=== PATIENT | female | born 1935 | race Caucasian/White ===

== ENCOUNTER 2016-10-09 10:18 | Observation (INO) ==
--- NOTE | 2016-10-09 10:47 | Emergency Department Note ---
Disposition Clinical Impression: Influenza A Syncope Qualifiers: Syncope type: unspecified Qualified Code(s): R55 - Syncope and collapse Pneumonia Qualifiers: Aspiration pneumonia type: unspecified Laterality: unspecified laterality Lung location: unspecified part of lung Disposition: Admitted As Inpatient Condition: Good Syncope HPI - General Chief Complaint: ED Syncope Stated Complaint: Syncope Time Seen by Provider: 10/09/16 10:31 Source: patient, EMS Limitations: no limitations Nursing Notes Reviewed: Yes Vital Signs Reviewed: Yes - History of Present Illness HPI Narrative: Patient here for evaluation of syncope. Patient had several second loss of consciousness while at home. Patient was sitting in a chair receiving her Lantus shot and she passed out. Patient felt onset of chair states that she had the back of her head. Patient complains of posterior occipital tenderness. Patient has had several episodes of passing out in the past but none of them correlated to specific etiology. Patient has not had cardiac workup in greater than 5 years. No previous cardiac history. Patient has had what she considers flulike symptoms for the last 3 days she has been treating with over-the- counter medicines. Patient describes cough and generalized fatigue. Patient also states that she is had urinary frequency without dysuria which she attributes to diabetes. - Related Data Home Medications Medication Instructions Recorded Confirmed Alendronate Sodium [Fosamax] 70 mg PO WE 10/09/16 10/09/16 Aspirin [Lo-Dose Aspirin EC] 81 mg PO DAILY 10/09/16 10/09/16 Atorvastatin [Lipitor] 40 mg PO HS 10/09/16 10/09/16 Glucosamine HCl/Chondr Pruett A Na 1 tab PO BID 10/09/16 10/09/16 [[facility] Glucosamine-Chondr Tablet] Insulin ASPART [Novolog Flexpen] 4 - 6 unit SQ TIDWM 10/09/16 10/09/16 Insulin Glargine,Hum.rec.anlog 12 unit SQ QAM 10/09/16 10/09/16 [Lantus Solostar] LORazepam [Ativan] 0.5 mg PO HS 10/09/16 10/09/16 Lisinopril [Zestril] 5 mg PO DAILY 10/09/16 10/09/16 Allergies Allergy/AdvReac Type Severity Reaction Status Date / Time No Known Allergies Allergy Verified 10/09/16 10:56 Constitutional: Denies: fever, chills Cardiovascular: Reports: syncope. Denies: chest pain, palpitations Respiratory: Reports: cough. Denies: dyspnea Gastrointestinal: Denies: abdominal pain, nausea, vomiting Genitourinary: Reports: frequency. Denies: urgency Musculoskeletal: Denies: back pain Integumentary: Denies: rash, abrasion, lesions Neurological: Reports: headache. Denies: weakness, numbness, confusion Endocrine: Denies: fatigue Past Medical History - Past Medical History Medical history: Reports: diabetes, hyperlipidemia, hypertension - Social History Smoking Status: Never smoker Smokeless Tobacco Status: No Alcohol use: Reports: none Drug use: Reports: none Physical Exam - General Limitations: no limitations General appearance: alert, in no apparent distress - Head Head exam: atraumatic, normocephalic - Eye Eye exam: Present: normal appearance, PERRL, EOMI - ENT ENT exam: normal exam, normal oropharynx - Neck Neck exam: Present: normal inspection - Chest Chest inspection: Present: normal inspection - Respiratory Respiratory exam: Present: normal lung sounds bilaterally - Cardiovascular Cardiovascular exam: Present: regular rate, normal rhythm - Abdominal Exam Abdominal exam: Present: soft, Non-Tender - Extremities Exam Extremities exam: Present: normal inspection. Absent: tenderness - Back Exam Back exam: Present: normal inspection. Absent: tenderness - Neurological Exam Neurological exam: Present: alert, oriented X3 - Psychiatric Psychiatric exam: Present: normal affect, normal mood - Skin Skin exam: Present: warm, dry, intact Course Course Narrative: Patient comes in with history of syncope that has unclear etiology. No previous workup. Recent flulike illness. Patient will receive CT scan of the head, chest x-ray, urinalysis and blood work including a troponin. Patient will likely be admitted for further observation and management. - Reevaluation(s) Reevaluation #1: Patient with syncope found to have influenza and pneumonia. Influenza pneumonia treated with Tamiflu, ceftriaxone, azithromycin. Patient will be admitted for further observation and management. - Consultations Consultation #1: Discussed with Dr. Mcelroy. Patient accepted for admission Vital Signs Temperature 97.8 F 10/09/16 10:19 Pulse Rate 64 10/09/16 10:19 Respiratory Rate 16 10/09/16 10:19 Blood Pressure 200/75 10/09/16 10:19 O2 Sat by Pulse Oximetry 96 10/09/16 10:19 Temperature 97.8 F 10/09/16 10:19 Pulse Rate 57 10/09/16 11:41 Respiratory Rate 16 10/09/16 11:41 Blood Pressure 177/68 10/09/16 11:41 O2 Sat by Pulse Oximetry 98 10/09/16 11:41 Oxygen Delivery Oxygen Delivery Room Air Syncope - Lab Data Result diagrams: 10/09/16 11:00 10/09/16 11:00 Lab Results 10/09/16 10/09/16 10/09/16 Range/Units 10:55 11:00 11:00 WBC 6.5 (4.3-11.1) K/mcL RBC 3.72 L (3.82-4.97) M/mcL Hgb 11.8 (11.5-15.4) g/dL Hct 36.4 (35.3-44.9) % MCV 97.8 (83.0-100.0) fL MCH 31.7 (28.0-33.3) pg MCHC 32.4 (31.6-35.5) g/dL RDW 13.0 (11.5-14.5) % Plt Count 133 L (140-400) K/mcL MPV 11.2 (9.4-12.4) fL Immature Gran % 0.6 (0-4) % Seg Neutrophils % 69.2 % Lymphocytes % 16.4 % Monocytes % 12.1 % Eosinophils % 1.5 % Basophils % 0.2 % Neutrophils # 4.5 (1.6-8.9) K/mcL Lymphocytes # 1.1 (0.6-4.6) K/mcL Monocytes # 0.8 (0.0-1.3) K/mcL Eosinophils # 0.1 (0.0-0.6) K/mcL Basophils # 0.0 (0.0-0.2) K/mcL PT 12.0 (9.4-12.1) Seconds INR 1.1 Sodium (136-145) mEq/L Potassium (3.5-4.5) mEq/L Chloride (98-109) mEq/L Carbon Dioxide (19-29) mEq/L BUN (7-20) mg/dL Creatinine (0.57-1.11) mg/dL Est GFR ( Amer) (> 60) Est GFR (Non-Af Amer) (> 60) BUN/Creatinine Ratio (6-26) Glucose (70-99) mg/dL Calculated Osmolality (280-300) Calcium (8.6-10.8) mg/dL Troponin I (0-0.03) ng/mL Urine Color Yellow (Yellow) Urine Clarity Clear (Clear) Urine pH 6.0 (5.0-8.0) pH Units Ur Specific [place] 1.020 (1.010-1.025) Urine Protein Trace (Neg-Trace) mg/dL Urine Glucose (UA) 250 H (Normal) mg/dL Urine Ketones Negative (Negative) mg/dL Urine Blood Negative (Negative) Urine Nitrite Negative (Negative) Urine Bilirubin Negative (Negative) Urine Urobilinogen Normal (Normal) mg/dL Ur Leukocyte Esterase Negative (Negative) Urine Microscopic RBC 0-3 (0-3) per hpf Urine Microscopic WBC 0-3 (0-3) per hpf Ur Squamous Epith Cells Many H (None-Few) per lpf Urine Bacteria None Seen (None-Few) per hpf Hyaline Casts None Seen (None-Few) per lpf 10/09/16 10/09/16 Range/Units 11:00 11:00 WBC (4.3-11.1) K/mcL RBC (3.82-4.97) M/mcL Hgb (11.5-15.4) g/dL Hct (35.3-44.9) % MCV (83.0-100.0) fL MCH (28.0-33.3) pg MCHC (31.6-35.5) g/dL RDW (11.5-14.5) % Plt Count (140-400) K/mcL MPV (9.4-12.4) fL Immature Gran % (0-4) % Seg Neutrophils % % Lymphocytes % % Monocytes % % Eosinophils % % Basophils % % Neutrophils # (1.6-8.9) K/mcL Lymphocytes # (0.6-4.6) K/mcL Monocytes # (0.0-1.3) K/mcL Eosinophils # (0.0-0.6) K/mcL Basophils # (0.0-0.2) K/mcL PT (9.4-12.1) Seconds INR Sodium 137 (136-145) mEq/L Potassium 4.5 (3.5-4.5) mEq/L Chloride 105 (98-109) mEq/L Carbon Dioxide 26 (19-29) mEq/L BUN 22 H (7-20) mg/dL Creatinine 1.19 H (0.57-1.11) mg/dL Est GFR ( Amer) 53 L (> 60) Est GFR (Non-Af Amer) 44 L (> 60) BUN/Creatinine Ratio 18 (6-26) Glucose 238 H (70-99) mg/dL Calculated Osmolality 295 (280-300) Calcium 9.6 (8.6-10.8) mg/dL Troponin I 0.01 (0-0.03) ng/mL Urine Color (Yellow) Urine Clarity (Clear) Urine pH (5.0-8.0) pH Units Ur Specific [place] (1.010-1.025) Urine Protein (Neg-Trace) mg/dL Urine Glucose (UA) (Normal) mg/dL Urine Ketones (Negative) mg/dL Urine Blood (Negative) Urine Nitrite (Negative) Urine Bilirubin (Negative) Urine Urobilinogen (Normal) mg/dL Ur Leukocyte Esterase (Negative) Urine Microscopic RBC (0-3) per hpf Urine Microscopic WBC (0-3) per hpf Ur Squamous Epith Cells (None-Few) per lpf Urine Bacteria (None-Few) per hpf Hyaline Casts (None-Few) per lpf Attestation Statement - Attestation Attestation: Patient was seen with resident physician. I reviewed the history, physical, assessment and plan, and agree with the findings. I also personally evaluated this patient and had [id number] time with this patient. 81-year-old female presents to the emergency Department chief complaint is syncopal. Patient was getting ready to take her insulin shot when she got lightheaded and dizzy. This resulted in loss of consciousness where she fell from the chair to the ground hitting the back of her head. Family member states she was only out for a few seconds did not hit very hard. Patient denies neck pain or head pain at this time. On examination ENT is unremarkable. Heart and lungs are normal. Abdomen is soft and nontender. Extremities are unremarkable. Patient stated that she thought she might have influenza that she has been feeling well for the last couple days. Influenza test was in fact positive. X-ray of the chest also revealed a pneumonia. Between the syncope the pneumonia and influenza, felt hospitalization was best course of action for further evaluation and antibiotic therapy. Hospitalist was notified for admission. Patient hemodynamically remained stable while in the ER. I agree with the resident physician assessment plan.
[2016-10-09 11:08] LABS: Basophils % 0.2 %; Eosinophils # 0.1 K/mcL (0.0-0.6); Eosinophils % 1.5 %; Hematocrit 36.4 % (35.3-44.9); Hemoglobin 11.8 g/dL (11.5-15.4); Immature Granulocytes % 0.6 % (0-4); Lymphocytes # 1.1 K/mcL (0.6-4.6); Lymphocytes % 16.4 %; Mean Corpuscular HGB Conc 32.4 g/dL (31.6-35.5); Mean Corpuscular Hemoglobin 31.7 pg (28.0-33.3); Mean Corpuscular Volume 97.8 fL (83.0-100.0); Mean Platelet Volume 11.2 fL (9.4-12.4); Monocytes # 0.8 K/mcL (0.0-1.3); Monocytes % 12.1 %; Neutrophils # 4.5 K/mcL (1.6-8.9); Platelet Count 133 K/mcL (140-400); Red Blood Count 3.72 M/mcL (3.82-4.97); Segmented Neutrophils % 69.2 %
[2016-10-09 11:11] LABS: Bilirubin,Urine Negative (Negative); Blood,Urine Negative (Negative); Clarity,Urine Clear (Clear); Color,Urine Yellow (Yellow); Glucose,Urine (UA) 250 mg/dL (Normal); Ketones,Urine Negative (Negative); Leukocyte Esterase,Urine Negative (Negative); Nitrite,Urine Negative (Negative); Protein,Urine Trace mg/dL (Neg-Trace); Urobilinogen,Urine Normal (Normal)
[2016-10-09 11:13] LABS: Bacteria,Urine None Seen per hpf (None-Few); Hyaline Casts,Urine None Seen per lpf (None-Few); RBC,Urine 0-3 per hpf (0-3); Squamous Epithelial Cell,Urine Many per lpf (None-Few); WBC,Urine 0-3 per hpf (0-3)
[2016-10-09 11:17] LABS: INR 1.1
[2016-10-09 11:26] LABS: Calcium 9.6 mg/dL (8.6-10.8); Potassium 4.5 mEq/L (3.5-4.5)
[2016-10-09] MEDS ORDERED: Azithromycin 250 MG TABLET PO ONE (11:40)
[2016-10-09] MEDS ORDERED: Ondansetron 4 MG/2 ML VIAL IVP PRN (14:19)
[2016-10-09] MEDS ORDERED: 0.9 % Sodium Chloride 1,000 ML IVC SCH (14:30)
[2016-10-09] MEDS ORDERED: Dextrose Gel 15 GM PO PRN ×2 (14:59)
[2016-10-09] MEDS ORDERED: *HR* Dextrose 50 % in Water (Syg) 50 ML SYRINGE IVP PRN (14:59)
[2016-10-09] MEDS ORDERED: D5% in Water 1,000 ML IV PRN (14:59)
[2016-10-09] MEDS ORDERED: Albuterol 2.5 MG/3 ML NEBULIZER IH PRN (15:12)
--- NOTE | 2016-10-09 15:19 | Internal Med History&Physical ---
<Imtiaz Mcelroy - Last Filed: 10/09/16 20:10> Internal Medicine - H&P: HPI History of present illness: Ms. Quezada is a 81 year old female Internal Medicine - H&P: Meds Alendronate Sodium [Fosamax] 70 mg PO WE 10/09/16 [History] Aspirin [Lo-Dose Aspirin EC] 81 mg PO DAILY 10/09/16 [History] Atorvastatin [Lipitor] 40 mg PO HS 10/09/16 [History] Glucosamine HCl/Chondr Pruett A Na [[facility] Glucosamine-Chondr Tablet] 1 tab PO BID 06/17 [History] Insulin ASPART [Novolog Flexpen] 4 - 6 unit SQ TIDWM 10/09/16 [History] Insulin Glargine,Hum.rec.anlog [Lantus Solostar] 12 unit SQ QAM 10/09/16 [ History] LORazepam [Ativan] 0.5 mg PO HS 10/09/16 [History] Lisinopril [Zestril] 5 mg PO DAILY 10/09/16 [History] Allergies No Known Allergies Allergy (Verified 10/09/16 10:56) All Systems PM: A 10-system review of systems was performed and is negative for pertinent findings except as documented above in the HPI. - Constitutional Vitals: Temp Pulse Resp BP Pulse Ox 98.4 F 59 15 169/69 96 10/09/16 14:59 10/09/16 14:59 10/09/16 14:59 10/09/16 14:59 10/09/16 14:59 Internal Med - H&P Results - Labs CBC & Chem 7: 10/09/16 11:00 10/09/16 11:00 - Attending Attestation I examined this patient and my medical decision-making was reviewed with the Advanced Practice Nurse. I agree with the documented findings, disposition and treatment plan as described except to the extent set forth below. Patient presented to the hospital after a brief episode of syncope. Workup revealed atypical pneumonia. She was positive for influenza. On exam she is in no distress, speaking in full sentences. Heart is regular S1- S2, lungs are clear Plan for pneumonia we will treat her with ceftriaxone and azithromycin and Tamiflu. <Emily Freed - Last Filed: 10/09/16 20:56> Date of Encounter: 10/09/16 Time of Encounter: 15:14 Assessment and Plan (1) Influenza A Current visit: Yes Status: Acute 1 patient has been experiencing increased feet fatigue and cough for the past 4 days, influenza swab was positive for A. ration started on Tamiflu 2 supportive care Tylenol for pain Mucinex for cough and breathing treatments as needed 3 anti-medics for nausea gentle IV hydration overnight (2) JENNIFER (acute kidney injury) Current visit: Yes Status: Acute 1 patient's creatinine is 1.19 GFR is 44. Baseline is less than 1. Suspect this is prerenal patient has been ill with poor oral intake as well as she is on lisinopril. We will hold lisinopril for now 2 we will give gentle IV fluids overnight monitor creatinine 3 avoid nephrotoxins renal dose antibiotics 4 monitor intake and output (3) HTN (hypertension) Current visit: Yes Status: Acute 1 presently is controlled she is on lisinopril she has increased creatinine we will hold lisinopril for now and resume once back to baseline Qualifiers: Hypertension type: essential hypertension Qualified Code(s): I10 - Essential (primary) hypertension (4) Syncope Current visit: Yes Status: Acute 1 patient did experience a syncopal episode today. CT of head is negative EKG with normal sinus rhythm-no past cardiac issues Suspect this is related to recent illness, has been in bed for past 4 days, most likely orthostatic. We will place on fall precautions 2 IV fluids 3 orthostatic vital signs 4 continuous cardiac monitoring 5 echo 6 cardiac troponin Qualifiers: Syncope type: unspecified Qualified Code(s): R55 - Syncope and collapse (5) DVT prophylaxis Current visit: Yes Status: Acute (6) Community acquired pneumonia due to influenza A virus Current visit: Yes Status: Acute 1 patient has been experiencing cough fatigue nausea for the past 4 days. She is positive for influenza A. Leukocytosis at this time no fever. Chest x-ray indicative of pneumonia. Continue with supportive treatment 2 we will continue with Rocephin and Zithromax 3 breathing treatments as needed 4 oxygen as needed Internal Medicine - H&P: HPI Chief complaint: syncope Admitted From: Emergency Dept Plans for Post Hospital Care: Home History of present illness: Ms. Quezada is a 81 year old female has no history of diabetes with hypertension. According to patient she has been experiencing a cough with fatigue and nausea for the past 4 days. Her cough is productive however she is unable to cough anything up and has been feeling congested. She has been using OTC medicines with little relief She denies any fevers or chills abdominal pain vomiting or diarrhea shortness of breath or chest pain. According to the patient she get up this morning was going into the kitchen to receive her Lantus. Her was preparing her shot, she became lightheaded , felt like she was going to pass out and she sat in the chair. She denies any CP headache or palpitations. Her administered her insulin and the patient passed out. He attempted to assist her to the floor and as he did the patient hit back of her head on the chair. called the EMS the patient did arouse prior to EMS arriving and she was appropriate following commands. Upon arrival to the ER CT of patient's head was negative for any intracranial abnormalities for did reveal a positive influenza A swab. Significant leukocytosis she had elevated creatinine at 1.19 BUN was 22 Chest x-ray did reveal patchy airspace disease which could represent pneumonia. The patient was given Tamiflu as well as antibiotics and has been admitted for further work up and evaluation. Presently the patient does not appear to be in any respiratory distress she denies any chest pain or shortness of breath at this time. Her lung sounds are clear throughout she does have a moist cough which causes her to gag. At present time she is hemodynamically stable I did review this case with Dr. Mcelroy who agrees with plan Past Med Surg Social Fam HX - Past Medical History Medical history: diabetes, hyperlipidemia, hypertension Psychiatric history: no psych history - Past Surgical History Surgical History: hysterectomy - Social History Smoking Status: Never smoker Smokeless Tobacco Status: No Alcohol use: none Drug use: none - Family History Mother Living Status: Hx Family Cardiac Disorders: Yes (HTN) All Systems PM: A 10-system review of systems was performed and is negative for pertinent findings except as documented above in the HPI. - Constitutional Constitutional: fatigue - Cardiovascular Cardiovascular ROS IM: no chest pain, no diaphoresis, no dyspnea, no lightheadedness, no palpitations, no syncope - Respiratory Respiratory: cough, chest congestion, excessive phlegm production - Gastrointestinal Gastrointestinal: no abdominal pain, no diarrhea, no hematemesis, no hematochezia, no melena, no nausea, no vomiting - Genitourinary Genitourinary: no change in urinary stream, no dysuria, no flank pain, no hematuria - Musculoskeletal Musculoskeletal ROS IM: no numbness, no tingling - Integumentary Integumentary IM: no rash, no unusual bruising - Neurological Neurological ROS: no confusion, no convulsions, no focal weakness, no numbness, no tingling, no tremor(s) - Constitutional Vitals: Temp Pulse Resp BP Pulse Ox 98.3 F 67 15 180/71 96 10/09/16 13:18 10/09/16 13:18 10/09/16 13:18 10/09/16 13:18 10/09/16 14:25 General appearance: Present: A&O X 3, answers questions appropriately - Head Head exam: Present: atraumatic, normocephalic - Eye Eye exam: Present: PERRL, conjuntiva pink, sclera anicteric Pupils: Present: PERRL - Neck Neck exam general surgery: Present: supple, trachea midline. Absent: lymphadenopathy - Respiratory Respiratory exam: Present: CTAB. Absent: accessory muscle use, rales, rhonchi, wheezes - Cardiovascular Cardiovascular exam: Present: RRR, +S1, +S2. Absent: diastolic murmur, gallop, rubs, systolic murmur - GI/Abdominal GI/Abdominal exam: Present: normal bowel sounds, soft, no peritoneal signs. Absent: distended, tenderness - Extremities Exam Extremities exam: Present: warm, radial pulses palpable and symetrical. Absent : calf tenderness, cyanotic, pedal edema - Neurological Exam Neurological exam: Present: CN II-XII intact, oriented X3, no focal deficits. Absent: pronater drift, facial droop, speech deficit - Skin Skin exam: Present: dry, intact Internal Med - H&P Results - Labs CBC & Chem 7: 10/09/16 11:00 10/09/16 11:00 - EKG Data EKG shows normal: sinus rhythm - Diagnostic Studies Chest x-ray Additional comments: Chest X-Ray 10/09/16 10:31 IMPRESSION: Patchy airspace disease within the left upper lobe and lingula could represent pneumonia. D/ / Alexander Bowers MD / Alexander Bowers MD Interpreting Provider: Alexander Bowers MD Head CT 10/09/16 10:32 IMPRESSION: No acute intracranial abnormality. D/ / Niels Jimenez MD / Niels Jimenez MD Interpreting Provider: Niels Jimenez MD
[2016-10-09] MEDS: Insulin LISPRO 300 UNITS/3 ML VIAL SQ SCH ×2 (16:44→21:00)
[2016-10-09] MEDS: *HR* LORazepam 0.5 MG TABLET PO SCH (20:42)
[2016-10-09] MEDS: (Glucosamine Hcl/Chondr Su A Na [Cvs Glucosamine-Chon) PO SCH (20:43)
[2016-10-09] MEDS: Insulin DETEMIR 100 UNIT/ML X5UNITS SQ SCH (20:59)
[2016-10-10] MEDS: *HR* Heparin 5,000 UNIT/ML VIAL SQ SCH ×2 (06:09→17:37)
[2016-10-10 06:47] LABS: BUN/Creatinine Ratio 18 (6-26); Blood Urea Nitrogen 17 mg/dL (7-20); Calcium 8.5 mg/dL (8.6-10.8); Carbon Dioxide 25 mEq/L (19-29); Chloride 107 mEq/L (98-109); Glucose 48 mg/dL (70-99); Osmolality,Calculated 285 (280-300); Sodium 138 mEq/L (136-145); eGFR For African Americans > 60 (> 60); eGFR For Non-African Americans 59 (> 60)
[2016-10-10 07:09] LABS: Basophils % 0.5 %; Eosinophils # 0.1 K/mcL (0.0-0.6); Eosinophils % 1.8 %; Hematocrit 30.7 % (35.3-44.9); Immature Granulocytes % 0.5 % (0-4); Lymphocytes # 1.7 K/mcL (0.6-4.6); Lymphocytes % 39.5 %; Mean Corpuscular HGB Conc 33.2 g/dL (31.6-35.5); Mean Corpuscular Hemoglobin 32.3 pg (28.0-33.3); Mean Corpuscular Volume 97.2 fL (83.0-100.0); Mean Platelet Volume 11.8 fL (9.4-12.4); Monocytes # 0.5 K/mcL (0.0-1.3); Monocytes % 11.4 %; Platelet Count 119 K/mcL (140-400); Red Blood Count 3.16 M/mcL (3.82-4.97); Segmented Neutrophils % 46.3 %
[2016-10-10 07:10] LABS: Hemoglobin 10.2 g/dL (11.5-15.4)
[2016-10-10] MEDS: Insulin LISPRO 300 UNITS/3 ML VIAL SQ SCH ×4 (07:33→22:08)
[2016-10-10] MEDS: Aspirin Enteric Coated 81 MG Tablet PO SCH (09:47)
[2016-10-10] MEDS: (Glucosamine Hcl/Chondr Su A Na [Cvs Glucosamine-Chon) PO SCH ×2 (09:48→22:09)
[2016-10-10] MEDS: Azithromycin 500 MG in D5% in Water 250 ML IVPB SCH (12:49)
--- NOTE | 2016-10-10 14:37 | Internal Med Progress Note ---
Date of Encounter: 10/10/16 Time of Encounter: 11:00 - Assessment and plan (1) JENNIFER (acute kidney injury) Current Visit: Yes Status: Ruled-out Assessment and plan: Patient's chemistry does not meet criteria for JENNIFER which is Cr >0.5 from patient 's baseline Her baseline Cr per chart hovers around 1.11 (04/25/14) and admitting Creatinine was 1.19 Cr has now improved to 0.92, patient is clinically improved d/C IVF (2) Community acquired pneumonia due to influenza A virus Current Visit: Yes Status: Acute Assessment and plan: Continue Ceftriaxone and Azithromycin. Day 2 Follow sputum culture (3) DVT prophylaxis Current Visit: Yes Status: Acute Assessment and plan: Heparin SQ (4) HTN (hypertension) Current Visit: Yes Status: Chronic Assessment and plan: Continue current meds Qualifiers: Hypertension type: essential hypertension Qualified Code(s): I10 - Essential (primary) hypertension (5) Influenza A Current Visit: Yes Status: Acute Assessment and plan: Continue Tamiflu (6) Syncope Current Visit: Yes Status: Resolved Assessment and plan: Resolved Possibly from dehydration Qualifiers: Syncope type: unspecified Qualified Code(s): R55 - Syncope and collapse - Subjective Interval history: 81 Y/O F with PMH of HTN, DM, HLD She is admitted and being managed for Influenza, Pneumonia and mild dehydration Seen at bedside, with spouse has no new complains - Constitutional Vitals: Temp Pulse Resp BP Pulse Ox 98.7 F 65 14 144/65 96 10/10/16 05:06 10/10/16 10:51 10/10/16 10:51 10/10/16 10:51 10/10/16 10:51 General appearance: Present: A&O X 3, pleasant, no acute distress, answers questions appropriately - Head Head exam: Present: atraumatic, normocephalic - Eye Eye exam: Present: PERRL, conjuntiva pink, sclera anicteric Pupils: Present: PERRL - Neck Neck exam general surgery: Present: supple, trachea midline. Absent: lymphadenopathy - Respiratory Respiratory exam: Present: CTAB. Absent: accessory muscle use, rales, rhonchi, wheezes - Cardiovascular Cardiovascular exam: Present: RRR, +S1, +S2. Absent: diastolic murmur, gallop, rubs, systolic murmur - GI/Abdominal GI/Abdominal exam: Present: normal bowel sounds, soft, no peritoneal signs. Absent: distended, tenderness - Extremities Exam Extremities exam: Present: warm, radial pulses palpable and symetrical. Absent : calf tenderness, cyanotic, pedal edema - Neurological Exam Neurological exam: Present: CN II-XII intact, oriented X3, no focal deficits. Absent: pronater drift, facial droop, speech deficit - Skin Skin exam: Present: dry, intact Internal Medicine: Result - Labs CBC & Chem 7: 10/10/16 06:01 10/10/16 06:01 Labs: Short CBC 10/10/16 Range/Units 06:01 WBC 4.4 (4.3-11.1) K/mcL Hgb 10.2 L D (11.5-15.4) g/dL Hct 30.7 L (35.3-44.9) % Plt Count 119 L (140-400) K/mcL Neutrophils # 2.0 (1.6-8.9) K/mcL BMP 10/10/16 06:01 Sodium 138 Potassium 4.0 Chloride 107 Carbon Dioxide 25 BUN 17 Creatinine 0.92 Glucose 48 L Calcium 8.5 L Cardiac Enzymes 10/09/16 10/10/16 Range/Units 21:08 06:01 Troponin I 0.01 0.02 (0-0.03) ng/mL - ABG Interpretation ABG results: PT/INR, D-dimer PT 12.0 Seconds (9.4-12.1) 10/09/16 11:00 Consult Discharge Plan - Plan Referrals: Pedro Leiva DO [Primary Care Provider] -
--- NOTE | 2016-10-10 14:45 | ECHO - Doppler Report ---
Echocardiogram Name: Gerri Quezada Date of Study: 10/10/2016 Date: 1935 Ht: 59.0 in Medical Record#: [id number] Age: 81 Wt: 104.0 lb Gender: Female BSA: 1.4 Order #: [id number] Location: [facility] Room #: [id number] Reading Physician: Jah Gloria DO, RAVEN, MAGALYS ADAME [employer]umber Kil[employer] Operator: Bee Melton RDCS Ordering Physician: Haider Gómez DO Primary Physician: Erica Leiva DO Indications: Syncope Impressions: LVEF 60-65%. Normal LV chamber size and function. Asymmetric hypertrophy of the basal septum. No LVOT obstruction. Mild left ventricular diastolic dysfunction. Normal right ventricular structure and function. Mild aortic regurgitation. No evidence of pulmonary hypertension. Left Ventricular Wall Motion: Rest Echo Findings All wall segments showed normal motion. Findings: Study Quality * Technically adequate exam. ECG Findings * Normal sinus rhythm. Left Ventricle * LVEF 60-65%. * Normal LV chamber size and function. * Asymmetric hypertrophy of the basal septum. No LVOT obstruction. * Mild left ventricular diastolic dysfunction. Right Ventricle * Normal right ventricular structure and function. Left Atrium * Mild to moderately dilated left atrium. Right Atrium * Normal right atrial size. Interatrial Septum * Interatrial septum not well evaluated. Aortic Valve * Trileaflet aortic valve. * Mildly sclerotic aortic valve leaflets. * Mild aortic regurgitation. * No aortic stenosis. Mitral Valve * Mildly thickened mitral valve leaflets. * Trace mitral regurgitation. * No mitral stenosis. Tricuspid Valve * Normal tricuspid valve structure and function. * Trace tricuspid regurgitation. * No evidence of pulmonary hypertension. Pulmonic Valve * Pulmonic valve not well visualized. * No pulmonic regurgitation. Aorta * Normally sized aortic root. Pericardium * The pericardium appears normal. IVC * Normal IVC dimensions and inspiratory collapse. Pulmonary Artery * Normal visualized portions of the main pulmonary artery. History Hypertension Diabetes Hypercholesteremia Family History of CAD 06-18-12 a Previous Echo was performed. Measurements: BP: 127/ 66 2D Normal Values RVIDd: 3.00 cm <2.7 cm IVSd: 1.30 cm 0.6 - 1.0 cm LVIDd: 4.20 cm 3.7 - 5.6 cm LVPWd: 1.20 cm 0.6 - 1.1 cm LVIDs: 2.40 cm 1.5 - 3.6 cm AO: 2.50 cm < 4.0 cm LA: 3.20 cm 2.0 - 4.0cm %FS: 42.90 cm >25 % LVOT Diam: 1.90 cm LA volume: 51 Mitral Valve Peak E:.65 m/sec Peak A:1.05 m/sec E/A Ratio:0.6 Peak E' Lat Nando:8.68 cm/s Peak E' Med Nando:7.12 cm/s E/E' Lat Ratio:7.5 E/E' Med Ratio:9.2 Aortic Valve AI pressure Half-time: 579.00 msec Tricuspid Valve TV Regurg Peak Grad: 20.00mmHg TV Regurg Peak Nando: 2.22m/sec Updated by Jah Gloria DO, FACLisa, MAGALYS ADAME on 10/10/2016 2:39:56 PM electronically signed on 10/10/2016 2:40:38 PM with status of Final Wall Motion Noguera: 1=Normal, 2=Hypokinesis, 3=Akinesis, 4=Dyskinesis, 5=Aneurysmal, 6=Hyperkinetic, X=Not Visualized (Blank)=Missing
[2016-10-10] MEDS: Insulin DETEMIR 100 UNIT/ML X5UNITS SQ SCH (22:08)
[2016-10-10] MEDS: Oseltamivir Phosphate 30 MG CAPSULE PO SCH (22:10)
[2016-10-10] MEDS: *HR* LORazepam 0.5 MG TABLET PO SCH (22:10)
[2016-10-11] MEDS: *HR* Heparin 5,000 UNIT/ML VIAL SQ SCH (05:38)
[2016-10-11 05:41] LABS: Basophils % 0.3 %; Eosinophils # 0.1 K/mcL (0.0-0.6); Eosinophils % 2.1 %; Hematocrit 30.7 % (35.3-44.9); Hemoglobin 10.2 g/dL (11.5-15.4); Immature Granulocytes % 0.3 % (0-4); Lymphocytes # 1.9 K/mcL (0.6-4.6); Lymphocytes % 51.5 %; Mean Corpuscular HGB Conc 33.2 g/dL (31.6-35.5); Mean Corpuscular Hemoglobin 32.2 pg (28.0-33.3); Mean Corpuscular Volume 96.8 fL (83.0-100.0); Mean Platelet Volume 11.5 fL (9.4-12.4); Monocytes # 0.4 K/mcL (0.0-1.3); Monocytes % 9.7 %; Platelet Count 119 K/mcL (140-400); Red Blood Count 3.17 M/mcL (3.82-4.97); Segmented Neutrophils % 36.1 %
[2016-10-11 05:55] LABS: Calcium 9.3 mg/dL (8.6-10.8); Potassium 4.5 mEq/L (3.5-4.5)
[2016-10-11 05:56] LABS: Neutrophils # 1.3 K/mcL (1.6-8.9)
[2016-10-11 06:18] LABS: Platelet Estimate Slight Decrease (Normal)
[2016-10-11] MEDS: Azithromycin 500 MG in D5% in Water 250 ML IVPB SCH (08:41)
[2016-10-11] MEDS: Aspirin Enteric Coated 81 MG Tablet PO SCH (08:41)
[2016-10-11] MEDS: (Glucosamine Hcl/Chondr Su A Na [Cvs Glucosamine-Chon) PO SCH (08:42)
[2016-10-11] MEDS: Oseltamivir Phosphate 30 MG CAPSULE PO SCH (08:47)
[2016-10-11] MEDS: Insulin LISPRO 300 UNITS/3 ML VIAL SQ SCH ×2 (08:48→12:12)
--- NOTE | 2016-10-11 09:18 | Internal Med Progress Note ---
Date of Encounter: 10/11/16 Time of Encounter: 09:15 - Assessment and plan (1) Community acquired pneumonia due to influenza A virus Current Visit: Yes Status: Acute Assessment and plan: Patient presented with productive cough x 4 days. Chest x-ray done in ED which revealed patchy airspace disease within the left upper lobe and lingula suspicious for pneumonia. Started on Rocephin/Azithromycin yesterday. Sputum culture was ordered but has not been collected. Today patient reports continued dry cough. Afebrile. WBC 3.7. Patient is 96% on RA. On exam scattered wheezing b /l. No rales, rhonchi. Plan: -Continue Rocephin/Azithromycin for total of 7 days (today is day 2) -Albuterol Neb 2.5mg Q2H PRN wheezing -Mucinex 600 mg PO BID (2) Influenza A Current Visit: Yes Status: Acute Assessment and plan: Patient presented with fatigue, productive cough, nausea, decreased oral intake x4 days. Patient tested positive for FluA. In ED was started on IVF and TamiFlu. Today patient reports she is feeling better. She has remained afebrile. WBC 3.7. Plan: -Continue Tamiflu 30mg BID x5 days (renal dosing due to elevated Cr.) -No longer appears dehydrated and is tolerating PO fluids. No IVF at this time. -Zofran 4mg Q8 PRN nausea (3) JENNIFER (acute kidney injury) Current Visit: Yes Status: Resolved Assessment and plan: Patient with 4 day history of decreased oral intake secondary to Flu/PNA symptoms. Appeared dehydrated on arrival. Cr in ED 1.19 (baseline around 1.11). Patient was given IVF. Today Cr 1.09. Will continue to monitor. (4) Diabetes Current Visit: Yes Status: Chronic Assessment and plan: Patient with history of DM. Two low readings in the 40s yesterday. Most recent was 170. Goal is <160. Continue Levemir 12 units HS, HumaLOG low dose corrective sliding scale HS, HumaLOG low dose corrective sliding scale TID after meals. Qualifiers: Diabetes mellitus type: type 2 Diabetes mellitus complication status: without complication Diabetes mellitus [facility] insulin use: with intermediate accountant use Qualified Code(s): E11.9 - Type 2 diabetes mellitus without complications ; Z79.4 - intermediate accountant (current) use of insulin (5) HLD (hyperlipidemia) Current Visit: Yes Status: Chronic Assessment and plan: Patient with history of HLD. Have restarted home Lipitor 40mg PO HS. Qualifiers: Hyperlipidemia type: unspecified Qualified Code(s): E78.5 - Hyperlipidemia , unspecified (6) HTN (hypertension) Current Visit: Yes Status: Chronic Assessment and plan: Patient with history of HTN. BP 200/75 on arrival. Currently 155/62. Have restarted home Lisinopril 10mg. Will continue to monitor. Qualifiers: Hypertension type: essential hypertension Qualified Code(s): I10 - Essential (primary) hypertension (7) Syncope Current Visit: Yes Status: Resolved Assessment and plan: Resolved. Patient reports one episode of lightheadedness and subsequent syncope at home immediately prior to arrival in the ED. Reports 4 days of decreased oral intake due to nausea. On exam in the ED patient appeared dehydrated. Was given IVF. Now tolerating PO fluids. No longer appears dehydrated. Reports no new episodes of lightheadedness/syncope. Will Continue to monitor. Qualifiers: Syncope type: unspecified Qualified Code(s): R55 - Syncope and collapse (8) DVT prophylaxis Current Visit: Yes Status: Acute Assessment and plan: Patient on SQ Heparin 5000U Q12 - Subjective Interval history: I have seen and examined the patient this morning. No overnight events. Reports she is feeling better. Continues to have a dry cough. Reports one loose/watery BM yesterday. Denies chills, sob, wheezing, cp, abdominal pain, n/v, dysuria, blood in her urine or stool. Denies any other pain/complaints at this time. - Constitutional Vitals: Temp Pulse Resp BP Pulse Ox 97.7 F 52 18 155/62 96 10/11/16 07:07 10/11/16 07:07 10/11/16 07:07 10/11/16 07:07 10/11/16 07:07 General appearance: Present: A&O X 3, pleasant, no acute distress, answers questions appropriately - Head Head exam: Present: atraumatic, normocephalic - Eye Eye exam: Present: PERRL, conjuntiva pink, sclera anicteric Pupils: Present: PERRL - ENT ENT exam: Present: mucous membranes moist, normal exam, normal external ear exam - Neck Neck exam general surgery: Present: supple, trachea midline. Absent: lymphadenopathy - Respiratory Respiratory exam: Present: wheezes (b/l scattered). Absent: accessory muscle use, prolonged expiratory phase, rales, respiratory distress, rhonchi, tachypnea - Cardiovascular Cardiovascular exam: Present: bradycardia, +S1, +S2. Absent: diastolic murmur, gallop, JVD, rubs, systolic murmur - GI/Abdominal GI/Abdominal exam: Present: normal bowel sounds, soft, no peritoneal signs. Absent: distended, tenderness - Extremities Exam Extremities exam: Present: warm, radial pulses palpable and symetrical. Absent : calf tenderness, cyanotic, pedal edema - Back Exam Back exam: Present: normal inspection. Absent: tenderness - Neurological Exam Neurological exam: Present: oriented X3, no focal deficits. Absent: pronater drift, facial droop, speech deficit - Psychiatric Psychiatric exam: Present: normal affect, normal mood - Skin Skin exam: Present: dry, normal color, warm Internal Medicine: Result - Labs CBC & Chem 7: 10/11/16 05:20 10/11/16 05:20 Labs: Short CBC 10/11/16 Range/Units 05:20 WBC 3.7 L (4.3-11.1) K/mcL Hgb 10.2 L (11.5-15.4) g/dL Hct 30.7 L (35.3-44.9) % Plt Count 119 L (140-400) K/mcL Neutrophils # 1.3 L (1.6-8.9) K/mcL BMP 10/11/16 05:20 Sodium 135 L Potassium 4.5 Chloride 104 Carbon Dioxide 26 BUN 19 Creatinine 1.09 Glucose 198 H Calcium 9.3 - ABG Interpretation ABG results: PT/INR, D-dimer PT 12.0 Seconds (9.4-12.1) 10/09/16 11:00 Consult Discharge Plan - Plan Additional Instructions: Follow up with Dr. Leiva regarding this hospital admission in the next 7 days. Complete the entire course of antibiotics as directed. Referrals: Pedro Leiva DO [Primary Care Provider] - () Prescriptions: Azithromycin [Zithromax Tri-Moiz] 500 mg PO DAILY #3 tablet Cefdinir [Omnicef] 300 mg PO DAILY #3 capsule Oseltamivir Phosphate [Tamiflu] 30 mg PO BID #6 capsule
[2016-10-11 11:11] VITALS: BP 162/75
--- NOTE | 2016-10-11 12:15 | Discharge Summary ---
<Ed Reza - Last Filed: 10/11/16 12:10> Date of Encounter: 10/11/16 Time of Encounter: 12:10 - Discharge Diagnosis (1) Community acquired pneumonia due to influenza A virus Priority: Primary Status: Acute Comments: Patient presented with productive cough x3 days prior to arrival. CXR revealed patchy airspace disease within the L upper lobe and linqula suspicious for pneumonia. Ceftriaxone and Azithromycin day 2/. Sputum culture was ordered, but not collected. Patient reported nonproductive cough. WBC 3.7, dcreased from 4.4 yesterday. Satting 96% on room air. To discharge with Omnicef and azithromycin for a total of 7 days. (2) Influenza A Priority: Primary Status: Acute Comments: Influenza A positive. Continue Tamiflu 30mg bid day 2, renal dosing due to decreased gfr (3) JENNIFER (acute kidney injury) Priority: Secondary Status: Resolved Comments: Resolved (4) Diabetes Priority: Secondary Status: Chronic Comments: Patient with history of diabetes. Two hypoglycemic readings in the 40s yesterday. Glucose at 170 this morning. Discharge patient on home meds for chronic disease management. Qualifiers: Diabetes mellitus type: type 2 Diabetes mellitus complication status: without complication Diabetes mellitus intermediate designer insulin use: with intermediate designer use Qualified Code(s): E11.9 - Type 2 diabetes mellitus without complications ; Z79.4 - termite inspector (current) use of insulin (5) HLD (hyperlipidemia) Priority: Secondary Status: Chronic Comments: Continue with home meds for chronic disease management. Qualifiers: Hyperlipidemia type: unspecified Qualified Code(s): E78.5 - Hyperlipidemia , unspecified (6) HTN (hypertension) Priority: Secondary Status: Chronic Comments: Bp 155/62, continue home meds for chronic disease management. Qualifiers: Hypertension type: essential hypertension Qualified Code(s): I10 - Essential (primary) hypertension (7) Syncope Priority: Secondary Status: Resolved Comments: Resolved. Patient reports one episode of lightheadedness and subsequent syncope at home immediately prior to arrival in the ED. Reports 4 days of decreased oral intake due to nausea. On exam in the ED patient appeared dehydrated. Was given IVF. Now tolerating PO fluids. No longer appears dehydrated. Reports no new episodes of lightheadedness/syncope. Will Continue to monitor. Qualifiers: Syncope type: unspecified Qualified Code(s): R55 - Syncope and collapse - Discharge Medications Prescriptions: Azithromycin [Zithromax Tri-Moiz] 500 mg PO DAILY #3 tablet Cefdinir [Omnicef] 300 mg PO DAILY #3 capsule Oseltamivir Phosphate [Tamiflu] 30 mg PO BID #6 capsule Home Medications: Alendronate Sodium [Fosamax] 70 mg PO WE 10/09/16 [History] Aspirin [Lo-Dose Aspirin EC] 81 mg PO DAILY 10/09/16 [History] Atorvastatin [Lipitor] 40 mg PO HS 10/09/16 [History] Glucosamine HCl/Chondr Pruett A Na [[facility] Glucosamine-Chondr Tablet] 1 tab PO BID 06/17 [History] Insulin ASPART [Novolog Flexpen] 4 - 6 unit SQ TIDWM 10/09/16 [History] Insulin Glargine,Hum.rec.anlog [Lantus Solostar] 12 unit SQ QAM 10/09/16 [ History] LORazepam [Ativan] 0.5 mg PO HS 10/09/16 [History] Lisinopril [Zestril] 5 mg PO DAILY 10/09/16 [History] Azithromycin [Zithromax Tri-Moiz] 500 mg PO DAILY #3 tablet 10/11/16 [Rx] Cefdinir [Omnicef] 300 mg PO DAILY #3 capsule 10/11/16 [Rx] Oseltamivir Phosphate [Tamiflu] 30 mg PO BID #6 capsule 10/11/16 [Rx] Allergies/Adverse Reactions: Allergies No Known Allergies Allergy (Verified 10/09/16 10:56) Procedures/tests Complete & Pending: Procedures Performed prior 72 hours Category Date Time Status EV echocardiogram Routine Y 10/10/16 10:00 Completed Date of admission: 10/09/16 12:21 Primary care physician: Pedro Leiva Consults: 10/09/16 20:54 Consult to Physical Therapy [CONS] Routine Comment: Evaluate, develop and implement POC Discharging clinician: Vinayak Reza) Anticipated date of discharge: 10/11/16 - Patient Status Disposition: Home, Self-Care Condition: Good Functional capacity at discharge: independent ambulation Overall status at discharge: patient is progressing back to baseline - Discharge Instructions Instructions: Azithromycin (By mouth), Oseltamivir (By mouth), Cefdinir (By mouth), Syncope (DC), Influenza (DC) Follow Up With: Pedro Leiva, [Primary Care Provider] - (Appt requested, they will call you with appt date & time.) Additional Instructions: Follow up with Dr. Leiva regarding this hospital admission in the next 7 days. Complete the entire course of antibiotics as directed. - Diet and Activity Activity: resume usual activities as tolerated Diet: advance to your usual diet, diabetic diet, low salt diet Interval History: Patient is feeling better, continues to have nonproductive dry cough. Reports one loose/watery bowel movement yesterday. Denies chills, shortness of breath, wheezing, chest pain, abdominal pain, nausea, vomiting, dysuria, blood in stool or urine. No other complaints. Hospital course: Ms. Quezada is a 81 year old female with history of diabetes, hyperlipidemia, and hypertension who presented with complaint of cough, fatigue, nausea, and chest congestion for 4 days rior to admission. Patient also reports some lightheadedness when she was getting her morning insulin dosing. CT head was negative. Influenza swab was positive for Influenza A. CXR revealed patchy airspace disease. Echo revealed LVEF 60-65% and mild aortic regurgitation. Patient was started on Ceftriaxone, Azithromycin, and Oseltamavir. Patient was also determined to have an elevated Cr of 1.19, which resolved the following day. Patient continued to have decrease in cough and improvement of symptoms. However, patient did develop some hypoglycemic readings in the 40s. Patient was held to continue monitoring sugar levels and continue administering IV antibiotics. Patient continues to have dry nonproductive cough, satting well at 96% on room air. Patient to be discharged home to follow up with PCP regarding hospital stay in the next 7 days. Continue to take complete course of antibiotics. - Time Spent with Patient Total time spent providing and/or coordinating discharge services: Less than 30 minutes - Constitutional Vitals: Temp Pulse Resp BP Pulse Ox 97.5 F L 50 18 162/75 96 10/11/16 11:07 10/11/16 11:07 10/11/16 11:07 10/11/16 11:07 10/11/16 11:07 General appearance: Present: cooperative, A&O X 3, pleasant, no acute distress, answers questions appropriately - Head Head exam: Present: atraumatic, normal inspection, normocephalic - Eye Eye exam: Present: EOMI, normal appearance, PERRL - ENT ENT exam: Present: mucous membranes moist, normal exam, normal external ear exam , normal oropharynx - Neck Neck exam general surgery: Present: full ROM, normal inspection, supple, trachea midline. Absent: lymphadenopathy, tenderness - Respiratory Respiratory exam: Present: wheezes (bilateral). Absent: accessory muscle use, chest wall tenderness, rales, rhonchi - Cardiovascular Cardiovascular exam: Present: RRR, +S1, +S2. Absent: JVD, systolic murmur - GI/Abdominal GI/Abdominal exam: Present: normal bowel sounds, soft. Absent: guarding, tenderness - Extremities Exam Extremities exam: Present: full ROM, normal capillary refill, normal inspection , warm, radial pulses palpable and symetrical. Absent: calf tenderness, pedal edema, tenderness - Back Exam Back exam: Present: full ROM, normal inspection. Absent: tenderness - Neurological Exam Neurological exam: Present: alert, CN II-XII intact, oriented X3, no focal deficits, strengths equal and symetr throughout. Absent: facial droop, speech deficit - Psychiatric Psychiatric exam: Present: normal affect, normal mood - Skin Skin exam: Present: dry, intact, normal color, warm. Absent: diaphoretic, rash <Vinayak Millan - Last Filed: 10/11/16 15:43> - Discharge Diagnosis (1) JENNIFER (acute kidney injury) Status: Resolved (2) Community acquired pneumonia due to influenza A virus Status: Acute (3) DVT prophylaxis Status: Acute (4) HTN (hypertension) Status: Chronic Qualifiers: Hypertension type: essential hypertension Qualified Code(s): I10 - Essential (primary) hypertension (5) Influenza A Status: Acute (6) Syncope Status: Resolved Qualifiers: Syncope type: unspecified Qualified Code(s): R55 - Syncope and collapse Procedures/tests Complete & Pending: Procedures Performed prior 72 hours Category Date Time Status EV echocardiogram Routine Y 10/10/16 10:00 Completed Date of admission: 10/09/16 12:21 Primary care physician: Pedro Leiva Consults: 10/09/16 20:54 Consult to Physical Therapy [CONS] Routine Comment: Evaluate, develop and implement POC Hospital course: Ms. Quezada is a 81 year old female - Time Spent with Patient Total time spent providing and/or coordinating discharge services: - Constitutional Vitals: Temp Pulse Resp BP Pulse Ox 97.5 F L 50 18 162/75 96 10/11/16 11:07 10/11/16 11:07 10/11/16 11:07 10/11/16 11:07 10/11/16 11:07 - Attending Attestation I examined this patient and my medical decision-making was reviewed with the HEEL BUFFER/PA/Advanced Practice Nurse/Resident Physician. I agree with the documented findings, disposition and treatment plan as described except to the extent set forth below. 81 Y/O F admitted for management of Influenza and Infleunza pneumonia, dehydration due to poor oral intake She is also a diabetic and hypertensive patient She had an episode of hypoglycemia in-patient, resolved with po intake She is clinically stable to go home on renallly doses tamiflu to complete 10 doses, ceftriaxone and azithromycin to complete 7 doses Patient with ow creatinine clearance ,she possibly has CKD Follow up with PCP rest of details as in resident's documentation
--- NOTE | 2016-10-11 15:20 | Electrocardiograph Report ---
[address] [address] Test Date: 2016-10-09 Pat Name: Gerri Quezada Department: 105 Room: [facility] Gender: F Multimedia Services Manager: : 1935 Requested By: Perico Green Order Number: [id number] Reading MD: Varun Miles Measurements Intervals [place] Rate: 60 P: -1 [place]: 153 QRS: 41 QRSD: 80 T: 59 QT: 419 QTc: 420 Interpretive Statements SINUS RHYTHM Electronically Signed On 10-11-2016 15:18:43 EDT by Varun Miles
== END 2016-10-11 14:20 | disposition home or self-care (01) ==
LOC: EMEROO 10:18 → 2NENU 10:18 → SUATTDRO 14:19
PROVIDERS: ADMIT Internal Medicine; ATTEND Internal Medicine

== ENCOUNTER 2018-02-01 10:18 | Observation (INO) ==
--- NOTE | 2018-02-01 10:22 | Emergency Department Note ---
Disposition Clinical Impression: Syncope, Neck pain, Bradycardia, Diabetes Disposition: Admitted As Inpatient Condition: Good General Adult HPI - General Chief complaint: ED Syncope Stated complaint: bradycardia, syncope Time Seen by Provider: 02/01/18 10:19 Nursing Notes Reviewed: Yes Vital Signs Reviewed: Yes - Related Data Home Medications Medication Instructions Recorded Confirmed Aspirin [Lo-Dose Aspirin EC] 81 mg PO DAILY 10/09/16 02/01/18 Atorvastatin [Lipitor] 40 mg PO HS 10/09/16 02/01/18 Insulin ASPART [Novolog Flexpen] 4 - 6 unit SQ TIDWM 10/09/16 02/01/18 LORazepam [Ativan] 0.5 mg PO HS 10/09/16 02/01/18 Lisinopril [Zestril] 5 mg PO DAILY 10/09/16 02/01/18 Insulin Glargine,Hum.rec.anlog 12 units SQ QAM 02/01/18 02/01/18 [Basaglar Kwikpen U-100] Memantine HCl 10 mg PO BID 02/01/18 02/01/18 Allergies Allergy/AdvReac Type Severity Reaction Status Date / Time No Known Allergies Allergy Verified 02/01/18 11:57 Past Medical History - Past Medical History Medical history: Reports: diabetes, hyperlipidemia, hypertension Surgical history: Reports: hysterectomy Psychiatric history: Reports: no psych history - Social History Smoking Status: Never smoker Smokeless Tobacco Status: No Alcohol use: Reports: none Drug use: Reports: none Course Vital Signs Temperature 97.4 F L 02/01/18 10:19 Pulse Rate 48 02/01/18 10:19 Respiratory Rate 16 02/01/18 10:19 Blood Pressure 143/74 02/01/18 10:19 O2 Sat by Pulse Oximetry 98 02/01/18 10:19 Temperature 97.4 F L 02/01/18 10:19 Pulse Rate 50 02/01/18 10:56 Respiratory Rate 16 02/01/18 13:04 Blood Pressure 182/98 02/01/18 13:04 O2 Sat by Pulse Oximetry 100 02/01/18 10:56 Oxygen Delivery Oxygen Delivery Room Air Medical Decision Making - MDM Narrative Medical decision making narrative: Chest X-Ray 02/01/18 10:19 IMPRESSION: No acute cardiopulmonary disease. D/ / Neal Cooper MD / Neal Cooper MD Interpreting Provider: Neal Cooper MD Head CT 02/01/18 10:20 IMPRESSION: 1. No acute intracranial hemorrhage or global mass effect. 2. Stable atrophy and extensive chronic microvascular ischemic changes. D/ / Giuseppe Rowan MD / Giuseppe Rowan MD Interpreting Provider: Giuseppe Rowan MD 1200 hrs.: With the possible of hypoglycemia in the syncopal episodes in the other history at like to bring her into the hospital for evaluation. She is in agreement with this plan. Think sending her home would not be ideal because she is cared for by her who is not in the best physical condition at this time either. They are in agreement with this admission plan. We will speak with the hospitalist. Impression is syncope with possible hypoglycemia - Lab Data Result diagrams: 02/01/18 10:30 02/01/18 10:30 Lab Results 02/01/18 02/01/18 02/01/18 Range/Units 10:25 10:30 10:30 WBC 6.6 (4.3-11.1) K/mcL RBC 3.72 L (3.82-4.97) M/mcL Hgb 12.2 (11.5-15.4) g/dL Hct 37.0 (35.3-44.9) % MCV 99.5 (83.0-100.0) fL MCH 32.8 (28.0-33.3) pg MCHC 33.0 (31.6-35.5) g/dL RDW 13.2 (11.5-14.5) % Plt Count 164 (140-400) K/mcL MPV 11.4 (9.4-12.4) fL Immature Gran % 0.8 (0-4) % Seg Neutrophils % 62.1 % Lymphocytes % 24.9 % Monocytes % 8.2 % Eosinophils % 3.5 % Basophils % 0.5 % Neutrophils # 4.1 (1.6-8.9) K/mcL Lymphocytes # 1.7 (0.6-4.6) K/mcL Monocytes # 0.5 (0.0-1.3) K/mcL Eosinophils # 0.2 (0.0-0.6) K/mcL Basophils # 0.0 (0.0-0.2) K/mcL Sodium 142 (136-145) mEq/L Potassium 3.8 (3.5-5.1) mEq/L Chloride 107 (98-107) mEq/L Carbon Dioxide 29 (23-29) mEq/L BUN 21 (8-23) mg/dL Creatinine 1.16 (0.60-1.20) mg/dL Est GFR ( Amer) 54 L (> 60) Est GFR (Non-Af Amer) 45 L (> 60) BUN/Creatinine Ratio 18 (6-26) Glucose 78 (70-105) mg/dL POC Glucose 68 L (70-99) mg/dL Calculated Osmolality 296 (280-300) Calcium 10.2 (8.6-10.3) mg/dL Troponin I < 0.03 (< 0.04) ng/mL Urine Color (Yellow) Urine Clarity (Clear) Urine pH (5.0-8.0) pH Units Ur Specific [place] (1.010-1.025) Urine Protein (Neg-Trace) mg/dL Urine Glucose (UA) (Normal) mg/dL Urine Ketones (Negative) mg/dL Urine Blood (Negative) Urine Nitrite (Negative) Urine Bilirubin (Negative) Urine Urobilinogen (Normal) mg/dL Ur Leukocyte Esterase (Negative) 02/01/18 02/01/18 Range/Units 11:19 12:02 WBC (4.3-11.1) K/mcL RBC (3.82-4.97) M/mcL Hgb (11.5-15.4) g/dL Hct (35.3-44.9) % MCV (83.0-100.0) fL MCH (28.0-33.3) pg MCHC (31.6-35.5) g/dL RDW (11.5-14.5) % Plt Count (140-400) K/mcL MPV (9.4-12.4) fL Immature Gran % (0-4) % Seg Neutrophils % % Lymphocytes % % Monocytes % % Eosinophils % % Basophils % % Neutrophils # (1.6-8.9) K/mcL Lymphocytes # (0.6-4.6) K/mcL Monocytes # (0.0-1.3) K/mcL Eosinophils # (0.0-0.6) K/mcL Basophils # (0.0-0.2) K/mcL Sodium (136-145) mEq/L Potassium (3.5-5.1) mEq/L Chloride (98-107) mEq/L Carbon Dioxide (23-29) mEq/L BUN (8-23) mg/dL Creatinine (0.60-1.20) mg/dL Est GFR ( Amer) (> 60) Est GFR (Non-Af Amer) (> 60) BUN/Creatinine Ratio (6-26) Glucose (70-105) mg/dL POC Glucose 85 (70-99) mg/dL Calculated Osmolality (280-300) Calcium (8.6-10.3) mg/dL Troponin I (< 0.04) ng/mL Urine Color Yellow (Yellow) Urine Clarity Clear (Clear) Urine pH 7.5 (5.0-8.0) pH Units Ur Specific [place] 1.014 (1.010-1.025) Urine Protein Negative (Neg-Trace) mg/dL Urine Glucose (UA) Normal (Normal) mg/dL Urine Ketones Negative (Negative) mg/dL Urine Blood Negative (Negative) Urine Nitrite Negative (Negative) Urine Bilirubin Negative (Negative) Urine Urobilinogen Normal (Normal) mg/dL Ur Leukocyte Esterase Negative (Negative) Attestation Statement - Attestation Attestation: This documentation is done with the assistance of Dragon dictation. Despite efforts made to ensure accuracy, there may be inaccuracies in hearing aid assistant or spelling and typographical errors. I examined this patient and my medical decision-making was reviewed with the Resident Physician. I agree with the documented findings, disposition and treatment plan as described except to the extent set forth below. Patient presents by EMS and was seen by Dr. Arcos and myself, I agree with his evaluation and management plan, supervise care the patient stay. Patient presents today she was standing up was dizzy making breakfast sat down and had a syncopal episode while she was sitting. No trauma. Her witnessed this. When medics got there sugar was normal she was diaphoretic T 90 chest pain no neuro symptoms. She has had an episode of this in the past about a year ago but that was when she had the flu and she does any fevers or flu symptoms now. Endo workup on her and reassess. She may need admission. She is in agreement with plan.
--- NOTE | 2018-02-01 10:23 | Emergency Department Note ---
Disposition Clinical Impression: Neck pain, Bradycardia Syncope Qualifiers: Syncope type: unspecified Qualified Code(s): R55 - Syncope and collapse Diabetes Qualifiers: Diabetes mellitus type: other specified (including KASSIE) Diabetes mellitus terminal operations manager insulin use: unspecified longterm insulin use status Proliferative retinopathy type: unspecified Laterality: unspecified laterality Disposition: Admitted As Inpatient Condition: Good Referrals: Mauro Hall DO [Emergency Provider] - Forms: ED Satisfaction Letter Time of Disposition: 12:09 Syncope HPI - General Chief Complaint: ED Syncope Stated Complaint: bradycardia, syncope Time Seen by Provider: 02/01/18 10:19 Source: patient, EMS Mode of arrival: EMS Limitations: no limitations Nursing Notes Reviewed: Yes Vital Signs Reviewed: Yes - History of Present Illness HPI Narrative: Patient presents to the ED via EMS after a syncopal episode. Patient states that she was in the kitchen making scrambled eggs and began to feel very dizzy. She sat down in the chair and had a syncopal episode. called EMS and upon arrival patient was awake but appeared tired. They noted she was diaphoretic and bradycardic (40s). Looking back in patient's chart she has been bradycardic into the 40s before and is about her baseline. Patient reports she is feeling a little better now but not 100% back to baseline. Denied any chest pain, shortness of breath, abdominal pain, nausea/ vomiting/diarrhea. She did report some R sided neck pain this AM that she put a washcloth on which seemed to help and was before this episode. No rash or fever. She does have a h/o DM and BS was 97 for EMS. - Related Data Home Medications Medication Instructions Recorded Confirmed Aspirin [Lo-Dose Aspirin EC] 81 mg PO DAILY 10/09/16 02/01/18 Atorvastatin [Lipitor] 40 mg PO HS 10/09/16 02/01/18 Insulin ASPART [Novolog Flexpen] 4 - 6 unit SQ TIDWM 10/09/16 02/01/18 LORazepam [Ativan] 0.5 mg PO HS 10/09/16 02/01/18 Lisinopril [Zestril] 5 mg PO DAILY 10/09/16 02/01/18 Insulin Glargine,Hum.rec.anlog 12 units SQ QAM 02/01/18 02/01/18 [Basaglar Kwikpen U-100] Memantine HCl 10 mg PO BID 02/01/18 02/01/18 Allergies Allergy/AdvReac Type Severity Reaction Status Date / Time No Known Allergies Allergy Verified 02/01/18 11:57 Review of Systems: As reviewed in the HPI. All other systems reviewed are negative or normal. Past Medical History - Past Medical History Attestation: Yes The following information was validated with the patient. Source: patient, old records reviewed Medical history: Reports: diabetes, hyperlipidemia, hypertension Surgical history: Reports: hysterectomy Psychiatric history: Reports: no psych history - Social History Smoking Status: Never smoker Smokeless Tobacco Status: No Alcohol use: Reports: none Drug use: Reports: none Physical Exam - General Limitations: no limitations General appearance: alert, in no apparent distress - Head Head exam: atraumatic, normocephalic, normal inspection - Eye Eye exam: Present: normal appearance, PERRL, EOMI - ENT ENT exam: normal exam, normal oropharynx, mucous membranes moist - Neck Neck exam: Present: normal inspection, full ROM, trachea midline - Chest Chest inspection: Present: normal inspection, symmetric chest wall rise - Respiratory Respiratory exam: Present: normal lung sounds bilaterally - Cardiovascular Cardiovascular exam: Present: normal rhythm, bradycardia, normal heart sounds - Abdominal Exam Abdominal exam: Present: soft, Non-Tender. Absent: tenderness, distention, guarding, rebound, rigidity - Extremities Exam Extremities exam: Present: normal inspection, full ROM, normal capillary refill. Absent: tenderness, pedal edema - Neurological Exam Neurological exam: Present: alert, oriented X3, CN II-XII intact - Expanded Neurological Exam Patient oriented to: Present: person, place, time Speech: Present: fluid speech Motor strength - LUE: 5/5 Motor strength - RUE: 5/5 Motor strength - LLE: 5/5 Motor strength - RLE: 5/5 Upper motor neuron exam: krystian neglect: Absent bilaterally Sensory exam upper extremity: light touch: Normal Sensory exam lower extremity: light touch: Normal Coma Scale Eye Opening: Spontaneous Coma Scale Motor Response: Obeys Commands Coma Scale Verbal Response: Oriented Coma Scale Total: 15 - Psychiatric Psychiatric exam: Present: normal affect, normal mood - Skin Skin exam: Present: warm, dry, intact, normal color Course Course Narrative: 82-year-old female presenting with syncopal episode. Was having some right- sided neck pain. Did not have any bruit. Head CT showed extensive chronic microvascular changes but no acute changes. We discussed with the patient and the patient's has seen Dr. Grier and has required carotid endarterectomies. She certainly could have right-sided occlusion. We will admit her to the hospitalist service for MRI of the head, carotid ultrasounds, and an echocardiogram. Her BS is also back up after OJ and PB. She still feels about the same so I don't think hypoglycemia would be a cause of her symptoms. Vital Signs Temperature 97.4 F L 02/01/18 10:19 Pulse Rate 48 02/01/18 10:19 Respiratory Rate 16 02/01/18 10:19 Blood Pressure 143/74 02/01/18 10:19 O2 Sat by Pulse Oximetry 98 02/01/18 10:19 Temperature 97.4 F L 02/01/18 10:19 Pulse Rate 50 02/01/18 10:56 Respiratory Rate 18 02/01/18 10:56 Blood Pressure 178/68 02/01/18 10:56 O2 Sat by Pulse Oximetry 100 02/01/18 10:56 Oxygen Delivery Oxygen Delivery Room Air Syncope - Medical Records Medical records reviewed: Yes I reviewed the patient's medical records. - Lab Data Lab results reviewed: Yes I reviewed the patient's lab results. Result diagrams: 02/01/18 10:30 02/01/18 10:30 Lab Results 02/01/18 02/01/18 02/01/18 Range/Units 10:25 10:30 10:30 WBC 6.6 (4.3-11.1) K/mcL RBC 3.72 L (3.82-4.97) M/mcL Hgb 12.2 (11.5-15.4) g/dL Hct 37.0 (35.3-44.9) % MCV 99.5 (83.0-100.0) fL MCH 32.8 (28.0-33.3) pg MCHC 33.0 (31.6-35.5) g/dL RDW 13.2 (11.5-14.5) % Plt Count 164 (140-400) K/mcL MPV 11.4 (9.4-12.4) fL Immature Gran % 0.8 (0-4) % Seg Neutrophils % 62.1 % Lymphocytes % 24.9 % Monocytes % 8.2 % Eosinophils % 3.5 % Basophils % 0.5 % Neutrophils # 4.1 (1.6-8.9) K/mcL Lymphocytes # 1.7 (0.6-4.6) K/mcL Monocytes # 0.5 (0.0-1.3) K/mcL Eosinophils # 0.2 (0.0-0.6) K/mcL Basophils # 0.0 (0.0-0.2) K/mcL Sodium 142 (136-145) mEq/L Potassium 3.8 (3.5-5.1) mEq/L Chloride 107 (98-107) mEq/L Carbon Dioxide 29 (23-29) mEq/L BUN 21 (8-23) mg/dL Creatinine 1.16 (0.60-1.20) mg/dL Est GFR ( Amer) 54 L (> 60) Est GFR (Non-Af Amer) 45 L (> 60) BUN/Creatinine Ratio 18 (6-26) Glucose 78 (70-105) mg/dL POC Glucose 68 L (70-99) mg/dL Calculated Osmolality 296 (280-300) Calcium 10.2 (8.6-10.3) mg/dL Troponin I < 0.03 (< 0.04) ng/mL 02/01/18 Range/Units 11:19 WBC (4.3-11.1) K/mcL RBC (3.82-4.97) M/mcL Hgb (11.5-15.4) g/dL Hct (35.3-44.9) % MCV (83.0-100.0) fL MCH (28.0-33.3) pg MCHC (31.6-35.5) g/dL RDW (11.5-14.5) % Plt Count (140-400) K/mcL MPV (9.4-12.4) fL Immature Gran % (0-4) % Seg Neutrophils % % Lymphocytes % % Monocytes % % Eosinophils % % Basophils % % Neutrophils # (1.6-8.9) K/mcL Lymphocytes # (0.6-4.6) K/mcL Monocytes # (0.0-1.3) K/mcL Eosinophils # (0.0-0.6) K/mcL Basophils # (0.0-0.2) K/mcL Sodium (136-145) mEq/L Potassium (3.5-5.1) mEq/L Chloride (98-107) mEq/L Carbon Dioxide (23-29) mEq/L BUN (8-23) mg/dL Creatinine (0.60-1.20) mg/dL Est GFR ( Amer) (> 60) Est GFR (Non-Af Amer) (> 60) BUN/Creatinine Ratio (6-26) Glucose (70-105) mg/dL POC Glucose 85 (70-99) mg/dL Calculated Osmolality (280-300) Calcium (8.6-10.3) mg/dL Troponin I (< 0.04) ng/mL - Radiology Data Radiology results reviewed: Yes I reviewed the patient's radiology results. - EKG Data EKG attestation: Yes I reviewed and interpreted this EKG. EKG results narrative: Sinus bradycardia, rate 49, ID interval 186, QRS 86, QTC 458, normal axis, no ischemic changes S.B.A.R. - S.B.A.R. Situation: Demographics, MOA Background: Presenting Complaint, Relevant PMH, Meds, & Allergies Assessment: Vital Signs, Course and respsone to treatment, Exam Concerns, Patient/Family Expectation, Pertinant Lab Results, Outstanding Labs Recommendation: Barrier(s) to disposition, Recommendation based on pending studies, treatments, or consults S.B.A.R. Report Given to: Dr. Rodriguez [id number] Repor Time: 12:08
[2018-02-01 10:48] LABS: Basophils % 0.5 %; Eosinophils # 0.2 K/mcL (0.0-0.6); Eosinophils % 3.5 %; Hemoglobin 12.2 g/dL (11.5-15.4); Immature Granulocytes % 0.8 % (0-4); Lymphocytes # 1.7 K/mcL (0.6-4.6); Lymphocytes % 24.9 %; Mean Corpuscular Hemoglobin 32.8 pg (28.0-33.3); Mean Corpuscular Volume 99.5 fL (83.0-100.0); Mean Platelet Volume 11.4 fL (9.4-12.4); Monocytes # 0.5 K/mcL (0.0-1.3); Monocytes % 8.2 %; Neutrophils # 4.1 K/mcL (1.6-8.9); Platelet Count 164 K/mcL (140-400); Red Blood Count 3.72 M/mcL (3.82-4.97); Red Cell Distribution Width 13.2 % (11.5-14.5); Segmented Neutrophils % 62.1 %
[2018-02-01 11:08] LABS: BUN/Creatinine Ratio 18 (6-26); Blood Urea Nitrogen 21 mg/dL (8-23); Calcium 10.2 mg/dL (8.6-10.3); Carbon Dioxide 29 mEq/L (23-29); Chloride 107 mEq/L (98-107); Glucose 78 mg/dL (70-105); Osmolality,Calculated 296 (280-300); Potassium 3.8 mEq/L (3.5-5.1); Sodium 142 mEq/L (136-145); eGFR For African Americans 54 (> 60); eGFR For Non-African Americans 45 (> 60)
[2018-02-01 11:09] LABS: Troponin I < 0.03 ng/mL (< 0.04)
[2018-02-01 12:11] LABS: Bilirubin,Urine Negative (Negative); Blood,Urine Negative (Negative); Clarity,Urine Clear (Clear); Color,Urine Yellow (Yellow); Glucose,Urine (UA) Normal (Normal); Ketones,Urine Negative (Negative); Leukocyte Esterase,Urine Negative (Negative); Nitrite,Urine Negative (Negative); PH,Urine 7.5 pH Units (5.0-8.0); Protein,Urine Negative (Neg-Trace); Specific Gravity,Urine 1.014 (1.010-1.025); Urobilinogen,Urine Normal (Normal)
[2018-02-01] MEDS ORDERED: Naloxone 0.4 MG/ML INJ IVP PRN (13:15)
[2018-02-01] MEDS ORDERED: Acetaminophen 325 MG TABLET PO PRN (13:15)
[2018-02-01] MEDS ORDERED: D5% in Water 1,000 ML IVC PRN (13:22)
[2018-02-01] MEDS ORDERED: Dextrose Gel 15 GM/37.5 ML TUBE PO PRN ×2 (13:22)
[2018-02-01] MEDS ORDERED: *HR* Dextrose 50 % in Water (Syg) 50 ML SYRINGE IVP PRN (13:22)
--- NOTE | 2018-02-01 13:41 | Internal Med History&Physical ---
<AnyaBraulio Brewer - Last Filed: 02/01/18 16:02> Date of Encounter: 02/01/18 Time of Encounter: 12:30 Internal Medicine - H&P: HPI Chief complaint: Syncope/Collapse Admitted From: Emergency Dept Plans for Post Hospital Care: Home History of present illness: Mrs. Quezada is a 83 year old female w/PMH of diabetes controlled w/insulin, HLD , and HTN presents from the ED w/CC of syncope and collapse. Pt. states she was preparing breakfast when she became dizzy, sat down, and passed out. reports pt. was diaphoretic. Pt. reports headache and right-sided neck pain prior to the episode. Pts. HR in 40s when EMS arrived. Patient and her state that she has been having sx for the past 2-3 months. Pt. reports she was started on Memantine approximately 2-3 months ago for dementia. Pt. denies recent illness, fever, chills, nausea, vomiting, changes in vision, unusual bleeding, abdominal pain, cough, chest congestion, diarrhea, constipation. Past Med Surg Social Fam HX - Past Medical History Source: patient, old records reviewed, obtained from family Medical history: diabetes, hyperlipidemia, hypertension Psychiatric history: no psych history - Past Surgical History Surgical History: hysterectomy - Social History Smoking Status: Never smoker Smokeless Tobacco Status: No Alcohol use: none Drug use: none Current living situation: Home, With Family Activity Level: Independent ambulation Recent Out of Country Travel Within the Last 8 Weeks: No Exposure or Possible Exposure to Illness During Travel: No - Family History Mother Race: Family Member Ethnicity: Non- Living Status: Age at : 80 Cause of : CT Hx Family Cardiac Disorders: Yes (CT, CAD, HTN) Father Race: Family Member Ethnicity: Non- Living Status: Age at : 48 Cause of : PNA Brother Race: Family Member Ethnicity: Non- Living Status: Age at : 72 Cause of : Pancreatic cancer Hx Family Cancer: Yes (Pancreatic, Prostate) Sister Race: Family Member Ethnicity: Non- Living Status: Age at : 88 Cause of : CT Hx Family Cardiac Disorders: Yes (CT, CAD) Internal Medicine - H&P: Meds Aspirin [Lo-Dose Aspirin EC] 81 mg PO DAILY 10/09/16 [History] Atorvastatin [Lipitor] 40 mg PO HS 10/09/16 [History] Insulin ASPART [Novolog Flexpen] 4 - 6 unit SQ TIDWM 10/09/16 [History] LORazepam [Ativan] 0.5 mg PO HS 10/09/16 [History] Lisinopril [Zestril] 5 mg PO DAILY 10/09/16 [History] Insulin Glargine,Hum.rec.anlog [Basaglar Kwikpen U-100] 12 units SQ QAM [History] Memantine HCl 10 mg PO BID 02/01/18 [History] 3 Allergy/AdvReac Type Severity Reaction Status Date / Time No Known Allergies Allergy Verified 02/01/18 11:57 All Systems PM: A 10-system review of systems was performed and is negative for pertinent findings except as documented above in the HPI. - Constitutional Constitutional: weakness (Bilateral LEs), no chills, no fever(s), no night sweats - EENT Eyes: no change in vision, no discharge, no pain, no photophobia Ears: no ear discharge, no ear pain, no tinnitus Nose, mouth and throat: no dysphagia, no nasal discharge, no neck pain, no sore throat - Breasts Breasts: as per HPI - Cardiovascular Cardiovascular ROS IM: as per HPI, irregular heart rhythm (Bradycardia), lightheadedness, syncope, no chest pain, no diaphoresis, no dyspnea, no palpitations - Respiratory Respiratory: no cough, no dyspnea, no wheezing, no excessive phlegm production - Gastrointestinal Gastrointestinal: no abdominal pain, no diarrhea, no hematemesis, no hematochezia, no melena, no nausea, no vomiting - Genitourinary Genitourinary: no change in urinary stream, no dysuria, no flank pain, no hematuria Menstruation: as per HPI, post hysterectomy - Musculoskeletal Musculoskeletal ROS IM: no numbness, no tingling - Integumentary Integumentary IM: no rash, no unusual bruising - Neurological Neurological ROS: as per HPI, dizziness, weakness, no confusion, no convulsions , no focal weakness, no numbness, no tingling, no tremor(s) - Psychiatric Psychiatric: as per HPI - Endocrine Endocrine IM: as per HPI - Hematologic/Lymphatic Hematologic/Lymphatic: no easy bruising - Allergic/Immunologic Allergic/Immunologic: as per HPI - Constitutional Vitals: Temp Pulse Resp BP Pulse Ox 97.4 F L 50 16 182/98 100 02/01/18 10:19 02/01/18 10:56 02/01/18 13:04 02/01/18 13:04 02/01/18 10:56 General appearance: Present: cooperative, A&O X 3, pleasant, no acute distress, underweight, answers questions appropriately - Head Head exam: Present: atraumatic, normocephalic - Eye Eye exam: Present: PERRL, conjuntiva pink, sclera anicteric Pupils: Present: PERRL - ENT ENT exam: Present: normal exam - Neck Neck exam general surgery: Present: supple, trachea midline. Absent: lymphadenopathy - Respiratory Respiratory exam: Present: CTAB. Absent: accessory muscle use, rales, rhonchi, wheezes - Cardiovascular Cardiovascular exam: Present: bradycardia - GI/Abdominal GI/Abdominal exam: Present: normal bowel sounds, soft, no peritoneal signs. Absent: distended, tenderness - Rectal Rectal exam: Present: deferred - Additional comments: exam deferred. - Extremities Exam Extremities exam: Present: warm, radial pulses palpable and symmetrical. Absent : calf tenderness, cyanotic, pedal edema - Back Exam Back exam: Present: normal inspection - Neurological Exam Neurological exam: Present: CN II-XII intact, oriented X3, no focal deficits. Absent: pronater drift, facial droop, speech deficit - Psychiatric Psychiatric exam: Present: normal affect, normal mood - Skin Skin exam: Present: dry, intact Internal Med - H&P Results - Labs CBC & Chem 7: 02/01/18 10:30 02/01/18 10:30 - EKG Data EKG shows normal: sinus rhythm Rate: bradycardia - EKG Data Prior EKG available for review: yes EKG comments: 02/01/18 13:46 EKG dated 10/09/16 showed sinus rhythm. EKG dated 02/01/18 shows sinus bradycardia. - Diagnostic Studies Chest x-ray Additional comments: Impressions Chest X-Ray 02/01/18 10:19 IMPRESSION: No acute cardiopulmonary disease. D/ / Neal Cooper MD / Neal Cooper MD Interpreting Provider: Neal Cooper MD CT scan - head Additional comments: Impressions Head CT 02/01/18 10:20 IMPRESSION: 1. No acute intracranial hemorrhage or global mass effect. 2. Stable atrophy and extensive chronic microvascular ischemic changes. D/ / 02/01/2018 11:43:44 Giuseppe Rowan MD / janes Interpreting Provider: Giuseppe Rowan MD - Assessment and plan (1) Syncope Current Visit: Yes Status: Acute Assessment and plan: Acute syncope. Pt. and report previous sx over the past 2-3 months. Pt. reports dizziness, headache, and right-sided neck pain prior to episode today. Bradycardic w/diaphoresis. Last Echocardiogram in 2017 showed LVEF of 60-65%, normal LV chamber size and function, asymmetric hypertrophy of the basal septum (see note LVOT obstruction), mild left ventricular diastolic dysfunction, normal right ventricular structure and function, mild aortic regurgitation, and no evidence of pulmonary hypertension. Pt. started on Memantine 2-3 months ago when sx began. Echocardiogram ordered. Bilateral carotid Dopplers. CT of the head shows no acute intracranial hemorrhage or global mass effect. Stable atrophy and extensive chronic microvascular ischemic changes. MRI of the head/ brain ordered. Consider Cardiology and Neurology consults based on abnormal test results. Falls/safety precautions. Up with assist. PT/OT consults. Hold Memantine. Pt. discussed w/Dr. Meyer who agrees w/plan of care. Pt. is moderate risk for further morbidity d/t current sx, recurrent sx of dizziness and syncope, hx, and risk factors. Observation. Qualifiers: Syncope type: unspecified Qualified Code(s): R55 - Syncope and collapse (2) Bradycardia Current Visit: Yes Status: Acute Assessment and plan: Acute bradycardia. Pt. reports previous episodes of bradycardia w/dizziness over past 2-3 months. Echocardiogram in 2017 showed LVEF of 60-65%, normal LV chamber size and function, asymmetric hypertrophy of the basal septum (see note LVOT obstruction), mild left ventricular diastolic dysfunction, normal right ventricular structure and function, mild aortic regurgitation, and no evidence of pulmonary hypertension. Echocardiogram ordered. Consider adding Cardiology consult based on Echocardiogram and Carotid Doppler results. (3) Weakness of both legs Current Visit: Yes Status: Acute Assessment and plan: Acute weakness of bilateral LEs. Falls/safety precautions d/t weakness and dizziness. Up with assist. PT/OT consults ordered to assess pt. for possible rehabilitation needs. (4) HTN (hypertension) Current Visit: Yes Status: Chronic Assessment and plan: Hx of chronic HTN. Monitor pt. and VS. Continue pts. lisinopril. Qualifiers: Hypertension type: essential hypertension Qualified Code(s): I10 - Essential (primary) hypertension (5) HLD (hyperlipidemia) Current Visit: Yes Status: Chronic Assessment and plan: Hx of chronic HLD. Lipid panel in a.m. labs. Continue pts. Lipitor. Qualifiers: Hyperlipidemia type: pure hypercholesterolemia Qualified Code(s): E78.00 - Pure hypercholesterolemia, unspecified; E78.0 - Pure hypercholesterolemia (6) Diabetes Current Visit: Yes Status: Chronic Assessment and plan: Hx of chronic diabetes controlled w/insulin. Continue pts. a.m. insulin and add low-dose correction insulin sliding scale w/hypoglycemic protocol. BG checks ACHS. A1c in a.m. labs. 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 Monitor pt. for signs of bleeding. (8) Dementia Current Visit: Yes Status: Chronic Assessment and plan: Hx of chronic dementia. Pt. reports being placed on Memantine 2-3 months ago. Pt. and state that this is approximately when sx began. also states pt. has not been herself since starting the medication. Informed pt. and that Memantine can cause syncope and bradycardia and should discuss this w/their PCP. Will hold Memantine. Qualifiers: Dementia type: unspecified type Qualified Code(s): F03.90 - Unspecified dementia without behavioral disturbance - Time Spent With Patient Total time spent is greater than 50% in coordination of care (as documented) at patient's floor/unit and/or counseling patient: Greater than 35 minutes <Maddy Rodriguez - Last Filed: 02/01/18 20:40> Date of Encounter: 02/01/18 Internal Medicine - H&P: HPI History of present illness: Ms. Quezada is a 83 year old female All Systems PM: A 10-system review of systems was performed and is negative for pertinent findings except as documented above in the HPI. - Constitutional Vitals: Temp Pulse Resp BP Pulse Ox 98.2 F 61 16 184/63 97 02/01/18 18:55 02/01/18 18:55 02/01/18 18:55 02/01/18 18:55 02/01/18 18:55 Internal Med - H&P Results - Labs CBC & Chem 7: 02/01/18 10:30 02/01/18 10:30 Labs: Cardiac Enzymes 02/01/18 Range/Units 16:37 Troponin I < 0.03 (< 0.04) ng/mL - Attending Attestation Seen and assessed. Follow up work up for syncope. 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, unspecified eye (3) Syncope Current Visit: Yes Status: Acute Qualifiers: Syncope type: unspecified Qualified Code(s): R55 - Syncope and collapse (4) Bradycardia Current Visit: Yes Status: Acute (5) HTN (hypertension) Current Visit: Yes Status: Chronic Qualifiers: Hypertension type: essential hypertension Qualified Code(s): I10 - Essential (primary) hypertension (6) HLD (hyperlipidemia) Current Visit: Yes Status: Chronic Qualifiers: Hyperlipidemia type: pure hypercholesterolemia Qualified Code(s): E78.00 - Pure hypercholesterolemia, unspecified; E78.0 - Pure hypercholesterolemia (7) Weakness of both legs Current Visit: Yes Status: Acute (8) Dementia Current Visit: Yes Status: Chronic Qualifiers: Dementia type: unspecified type Qualified Code(s): F03.90 - Unspecified dementia without behavioral disturbance - Time Spent With Patient Total time spent is greater than 50% in coordination of care (as documented) at patient's floor/unit and/or counseling patient:
[2018-02-01] MEDS: *HR* Heparin 5,000 UNIT/ML VIAL SQ SCH ×2 (14:03→22:08)
[2018-02-01] MEDS: 0.9 % Sodium Chloride 1,000 ML IVC SCH (14:05)
[2018-02-01] MEDS: Insulin LISPRO 300 UNITS/3 ML VIAL SQ SCH ×2 (16:51→22:09)
[2018-02-01] MEDS: *HR* LORazepam 0.5 MG TABLET PO SCH (22:08)
[2018-02-02 04:13] LABS: Basophils % 0.3 %; Eosinophils # 0.2 K/mcL (0.0-0.6); Eosinophils % 2.1 %; Hematocrit 29.4 % (35.3-44.9); Hemoglobin 9.8 g/dL (11.5-15.4); Immature Granulocytes % 0.4 % (0-4); Lymphocytes # 2.1 K/mcL (0.6-4.6); Lymphocytes % 26.9 %; Mean Corpuscular HGB Conc 33.3 g/dL (31.6-35.5); Mean Corpuscular Hemoglobin 32.2 pg (28.0-33.3); Mean Corpuscular Volume 96.7 fL (83.0-100.0); Mean Platelet Volume 12.1 fL (9.4-12.4); Monocytes # 0.7 K/mcL (0.0-1.3); Monocytes % 9.4 %; Neutrophils # 4.7 K/mcL (1.6-8.9); Platelet Count 138 K/mcL (140-400); Red Blood Count 3.04 M/mcL (3.82-4.97); Red Cell Distribution Width 13.2 % (11.5-14.5); Segmented Neutrophils % 60.9 %
[2018-02-02 04:31] LABS: Alanine Aminotransferase 23 Units/L (7-52); Albumin 3.5 g/dL (3.5-5.7); Albumin/Globulin Ratio 1.6 (1.1-2.2); Alkaline Phosphatase 95 Units/L (34-104); Aspartate Amino Transferase 31 Units/L (13-39); BUN/Creatinine Ratio 19 (6-26); Bilirubin,Total 0.5 mg/dL (0.3-1.0); Blood Urea Nitrogen 19 mg/dL (8-23); Calcium 9.5 mg/dL (8.6-10.3); Carbon Dioxide 27 mEq/L (23-29); Chloride 109 mEq/L (98-107); Chol/HDL Ratio 2.5 (0-4.9); Cholesterol 144 mg/dL (< 200); Globulin 2.2 g/dL (2.4-3.5); Glucose 72 mg/dL (70-105); HDL Cholesterol 58 mg/dL (40-59); LDL Cholesterol,Calculated 75 mg/dL (0-99); Osmolality,Calculated 291 (280-300); Potassium 3.9 mEq/L (3.5-5.1); Sodium 140 mEq/L (136-145); Total Protein 5.7 g/dL (6.4-8.9); Triglycerides 56 mg/dL (< 150); eGFR For African Americans > 60 (> 60); eGFR For Non-African Americans 52 (> 60)
[2018-02-02] MEDS: *HR* Heparin 5,000 UNIT/ML VIAL SQ SCH ×3 (05:38→20:37)
[2018-02-02] MEDS: 0.9 % Sodium Chloride 1,000 ML IVC SCH (05:39)
[2018-02-02 09:40] LABS: Estimated Average Glucose 171 mg/dl; Hemoglobin A1C 7.6 %
[2018-02-02] MEDS: Insulin LISPRO 300 UNITS/3 ML VIAL SQ SCH ×4 (10:11→20:37)
[2018-02-02] MEDS ORDERED: hydrALAZINE 25 MG TABLET PO PRN (10:15)
[2018-02-02] MEDS: Aspirin Enteric Coated 81 MG Tablet PO SCH (10:24)
[2018-02-02] MEDS: Insulin DETEMIR 100 UNIT/ML X5UNITS SQ SCH (10:24)
--- NOTE | 2018-02-02 17:20 | Internal Med Progress Note ---
Date of Encounter: 02/02/18 Time of Encounter: 13:00 - Assessment and plan (1) Syncope Current Visit: Yes Status: Acute Assessment and plan: Suspect secondary to orthostatic hypotension as patient reports of feeling dizzy when she stands up and had a syncopal episode earlier this morning. Will continue to monitor on telemetry and complete cardiovascular workup with echocardiogram and carotid Dopplers which are pending. With the statics are also pending. Qualifiers: Syncope type: vasovagal syncope Qualified Code(s): R55 - Syncope and collapse (2) Bradycardia Current Visit: Yes Status: Acute Assessment and plan: Patient no longer with bradycardia but will continue to monitor on telemetry (3) Dementia Current Visit: Yes Status: Chronic Assessment and plan: Patient was recently started on Memantine 2-3 months ago after which her symptoms began her . Will hold Memantine. Qualifiers: Dementia type: unspecified type Dementia behavioral disturbance: without behavioral disturbance Qualified Code(s): F03.90 - Unspecified dementia without behavioral disturbance (4) Diabetes Current Visit: Yes Status: Chronic Assessment and plan: Hx of chronic diabetes controlled w/insulin. 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 lisinopril. Qualifiers: Hypertension type: essential hypertension Qualified Code(s): I10 - Essential (primary) hypertension (6) HLD (hyperlipidemia) Current Visit: Yes Status: Chronic Assessment and plan: Continue pts. Lipitor. Qualifiers: Hyperlipidemia type: pure hypercholesterolemia Qualified Code(s): E78.00 - Pure hypercholesterolemia, unspecified; E78.0 - Pure hypercholesterolemia (7) DVT prophylaxis Current Visit: Yes Status: Acute Assessment and plan: Heparin subcutaneous - Time Spent With Patient Total time spent is greater than 50% in coordination of care (as documented) at patient's floor/unit and/or counseling patient: - Subjective Interval history: Patient reports of feeling dizzy when she stands up and had a syncopal episode earlier this morning Suspect secondary to orthostatic hypotension due to dehydration - Constitutional Vitals: Temp Pulse Resp BP Pulse Ox 97.7 F 75 18 160/65 97 02/02/18 15:48 02/02/18 15:48 02/02/18 15:48 02/02/18 15:48 02/02/18 15:48 General appearance: Present: cooperative, A&O X 3, pleasant, no acute distress, underweight, answers questions appropriately - Respiratory Respiratory exam: Present: CTAB. Absent: accessory muscle use, rales, rhonchi, wheezes - Cardiovascular Cardiovascular exam: Present: RRR, +S1, +S2. Absent: diastolic murmur, gallop, rubs, systolic murmur Internal Medicine: Result - Labs CBC & Chem 7: 02/02/18 03:16 02/02/18 03:16 Labs: Short CBC 02/02/18 Range/Units 03:16 WBC 7.8 (4.3-11.1) K/mcL Hgb 9.8 L D (11.5-15.4) g/dL Hct 29.4 L (35.3-44.9) % Plt Count 138 L (140-400) K/mcL Neutrophils # 4.7 (1.6-8.9) K/mcL BMP 02/02/18 03:16 Sodium 140 Potassium 3.9 Chloride 109 H Carbon Dioxide 27 BUN 19 Creatinine 1.01 Glucose 72 Calcium 9.5 Cardiac Enzymes 02/01/18 Range/Units 22:12 Troponin I < 0.03 (< 0.04) ng/mL Liver Function 02/02/18 Range/Units 03:16 Total Bilirubin 0.5 (0.3-1.0) mg/dL AST 31 (13-39) Units/L ALT 23 (7-52) Units/L Alkaline Phosphatase 95 (34-104) Units/L Albumin 3.5 (3.5-5.7) g/dL Consult Discharge Plan - Plan Referrals: Erika Delatorre, FOOD AND BEVERAGE ANALYST [Primary Care Provider] -
[2018-02-02] MEDS: *HR* LORazepam 0.5 MG TABLET PO SCH (20:37)
[2018-02-03] MEDS: *HR* Heparin 5,000 UNIT/ML VIAL SQ SCH ×3 (05:26→21:14)
[2018-02-03 05:41] LABS: Basophils % 0.3 %; Eosinophils # 0.2 K/mcL (0.0-0.6); Eosinophils % 3.1 %; Hematocrit 29.3 % (35.3-44.9); Hemoglobin 9.9 g/dL (11.5-15.4); Immature Granulocytes % 0.6 % (0-4); Lymphocytes # 1.9 K/mcL (0.6-4.6); Lymphocytes % 29.2 %; Mean Corpuscular HGB Conc 33.8 g/dL (31.6-35.5); Mean Corpuscular Hemoglobin 32.9 pg (28.0-33.3); Mean Corpuscular Volume 97.3 fL (83.0-100.0); Monocytes # 0.7 K/mcL (0.0-1.3); Monocytes % 10.5 %; Neutrophils # 3.6 K/mcL (1.6-8.9); Platelet Count 134 K/mcL (140-400); Red Blood Count 3.01 M/mcL (3.82-4.97); Red Cell Distribution Width 13.4 % (11.5-14.5); Segmented Neutrophils % 56.3 %
[2018-02-03 05:58] LABS: Alanine Aminotransferase 24 Units/L (7-52); Albumin 3.4 g/dL (3.5-5.7); Albumin/Globulin Ratio 1.6 (1.1-2.2); Alkaline Phosphatase 104 Units/L (34-104); Aspartate Amino Transferase 32 Units/L (13-39); BUN/Creatinine Ratio 18 (6-26); Bilirubin,Total 0.6 mg/dL (0.3-1.0); Blood Urea Nitrogen 18 mg/dL (8-23); Calcium 9.5 mg/dL (8.6-10.3); Carbon Dioxide 25 mEq/L (23-29); Chloride 111 mEq/L (98-107); Globulin 2.1 g/dL (2.4-3.5); Glucose 122 mg/dL (70-105); Osmolality,Calculated 293 (280-300); Sodium 140 mEq/L (136-145); Total Protein 5.5 g/dL (6.4-8.9); eGFR For African Americans > 60 (> 60); eGFR For Non-African Americans 52 (> 60)
[2018-02-03] MEDS: Insulin LISPRO 300 UNITS/3 ML VIAL SQ SCH ×4 (09:16→21:15)
[2018-02-03] MEDS: Aspirin Enteric Coated 81 MG Tablet PO SCH (09:18)
[2018-02-03] MEDS: Insulin DETEMIR 100 UNIT/ML X5UNITS SQ SCH (09:19)
--- NOTE | 2018-02-03 09:50 | Electrocardiograph Report ---
[address] [place] [address] Test Date: 2018-02-01 Pat Name: Gerri Quezada Department: 104 Room: 3B Gender: F Credit Specialist: : 1935 Requested By: [id number] Order Number: [id number] Reading MD: Guy Capps Measurements Intervals [place] Rate: 49 P: 18 W[place]: 186 QRS: 42 QRSD: 86 T: 57 QT: 487 QTc: 458 Interpretive Statements SINUS BRADYCARDIA Electronically Signed On 02-03-2018 9:48:52 EDT by Guy Capps
--- NOTE | 2018-02-03 10:04 | Electrocardiograph Report ---
[address] [place] [address] Test Date: 2018-02-02 Pat Name: Gerri Quezada Department: 113 Room: 3B Gender: F Fundraising Specialist: ADRIANO : 1935 Requested By: Maddy Rodriguez Order Number: [id number] Reading MD: Guy Capps Measurements Intervals [place] Rate: 66 P: 236 [place]: 160 QRS: -64 QRSD: 80 T: -71 QT: 376 QTc: 390 Interpretive Statements ECTOPIC ATRIAL RHYTHM LEFT ANTERIOR FASCICULAR BLOCK Electronically Signed On 02-03-2018 10:02:53 EDT by Guy Capps
[2018-02-03] MEDS: amLODIPine 5 MG TABLET PO SCH (13:05)
--- NOTE | 2018-02-03 18:34 | Internal Med Progress Note ---
Date of Encounter: 02/03/18 Time of Encounter: 11:00 - Assessment and plan (1) HTN (hypertension) Current Visit: Yes Status: Chronic Assessment and plan: Patient with uncontrolled hypertension on lisinopril 5 mg daily. Amlodipine 10 mg added this morning and will monitor overnight Qualifiers: Hypertension type: essential hypertension Qualified Code(s): I10 - Essential (primary) hypertension (2) Syncope Current Visit: Yes Status: Acute Assessment and plan: Suspect secondary to orthostatic hypotension as patient reports of feeling dizzy when she stands up and had a syncopal episode earlier this morning. Echocardiogram showed LVEF of 60-65% with mild left ventricular diastolic dysfunction but no significant Valvular dysfunction Carotid Dopplers with 40-59 stenosis bilaterally Orthostatics negative Will continue to hold patient's [place] Qualifiers: Syncope type: vasovagal syncope Qualified Code(s): R55 - Syncope and collapse (3) Bradycardia Current Visit: Yes Status: Acute Assessment and plan: Patient no longer with bradycardia but will continue to monitor on telemetry (4) Dementia Current Visit: Yes Status: Chronic Assessment and plan: Patient was recently started on Memantine 2-3 months ago after which her symptoms began her . Will hold Memantine. Qualifiers: Dementia type: unspecified type Dementia behavioral disturbance: without behavioral disturbance Qualified Code(s): F03.90 - Unspecified dementia without behavioral disturbance (5) Diabetes Current Visit: Yes Status: Chronic Assessment and plan: Hx of chronic diabetes controlled w/insulin. 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 Lipitor. Qualifiers: Hyperlipidemia type: pure hypercholesterolemia Qualified Code(s): E78.00 - Pure hypercholesterolemia, unspecified; E78.0 - Pure hypercholesterolemia (7) DVT prophylaxis Current Visit: Yes Status: Acute Assessment and plan: Heparin subcutaneous - Time Spent With Patient Total time spent is greater than 50% in coordination of care (as documented) at patient's floor/unit and/or counseling patient: - Subjective Interval history: Patient has been asymptomatic during hospital stay her blood pressures have been elevated She was started on calcium channel zeus this morning and will monitor overnight - Constitutional Vitals: Temp Pulse Resp BP Pulse Ox 98.0 F 52 13 164/58 98 02/03/18 15:53 02/03/18 15:53 02/03/18 15:53 02/03/18 15:53 02/03/18 15:53 General appearance: Present: cooperative, A&O X 3, pleasant, no acute distress, underweight, answers questions appropriately - Respiratory Respiratory exam: Present: CTAB. Absent: accessory muscle use, rales, rhonchi, wheezes - Cardiovascular Cardiovascular exam: Present: RRR, +S1, +S2. Absent: diastolic murmur, gallop, rubs, systolic murmur Internal Medicine: Result - Labs CBC & Chem 7: 02/03/18 05:23 02/03/18 05:23 Labs: Short CBC 02/03/18 Range/Units 05:23 WBC 6.5 (4.3-11.1) K/mcL Hgb 9.9 L (11.5-15.4) g/dL Hct 29.3 L (35.3-44.9) % Plt Count 134 L (140-400) K/mcL Neutrophils # 3.6 (1.6-8.9) K/mcL BMP 02/03/18 05:23 Sodium 140 Potassium 4.0 Chloride 111 H Carbon Dioxide 25 BUN 18 Creatinine 1.02 Glucose 122 H Calcium 9.5 Liver Function 02/03/18 Range/Units 05:23 Total Bilirubin 0.6 (0.3-1.0) mg/dL AST 32 (13-39) Units/L ALT 24 (7-52) Units/L Alkaline Phosphatase 104 (34-104) Units/L Albumin 3.4 L (3.5-5.7) g/dL Consult Discharge Plan - Plan Referrals: Erika Delatorre CNP [Primary Care Provider] -
[2018-02-03] MEDS: *HR* LORazepam 0.5 MG TABLET PO SCH (21:15)
[2018-02-04 03:53] LABS: Basophils % 0.3 %; Eosinophils # 0.3 K/mcL (0.0-0.6); Eosinophils % 3.9 %; Hematocrit 31.1 % (35.3-44.9); Hemoglobin 10.4 g/dL (11.5-15.4); Immature Granulocytes % 0.5 % (0-4); Lymphocytes # 2.7 K/mcL (0.6-4.6); Lymphocytes % 36.8 %; Mean Corpuscular HGB Conc 33.4 g/dL (31.6-35.5); Mean Corpuscular Hemoglobin 32.5 pg (28.0-33.3); Mean Corpuscular Volume 97.2 fL (83.0-100.0); Mean Platelet Volume 11.9 fL (9.4-12.4); Monocytes # 0.8 K/mcL (0.0-1.3); Monocytes % 10.5 %; Neutrophils # 3.6 K/mcL (1.6-8.9); Platelet Count 148 K/mcL (140-400); Red Cell Distribution Width 13.3 % (11.5-14.5)
[2018-02-04 04:11] LABS: Albumin 3.6 g/dL (3.5-5.7); Albumin/Globulin Ratio 1.5 (1.1-2.2); Bilirubin,Total 0.6 mg/dL (0.3-1.0); Calcium 9.8 mg/dL (8.6-10.3); Globulin 2.4 g/dL (2.4-3.5); Potassium 3.9 mEq/L (3.5-5.1)
[2018-02-04] MEDS: *HR* Heparin 5,000 UNIT/ML VIAL SQ SCH ×2 (05:18→13:48)
[2018-02-04] MEDS: amLODIPine 5 MG TABLET PO SCH (07:50)
[2018-02-04] MEDS: Aspirin Enteric Coated 81 MG Tablet PO SCH (07:50)
[2018-02-04] MEDS: Insulin DETEMIR 100 UNIT/ML X5UNITS SQ SCH (07:51)
[2018-02-04] MEDS: Insulin LISPRO 300 UNITS/3 ML VIAL SQ SCH ×2 (08:21→12:03)
[2018-02-04 11:53] VITALS: BP 133/60
--- NOTE | 2018-02-04 14:36 | Discharge Summary ---
- NOTES TO OUTPATIENT PROVIDER Notes to Outpatient Provider: Patient to follow-up with primary care provider for hypertension and dementia management. Patient's Namenda was discontinued due to potential side effects of dizziness/syncopal episodes and calcium channel zeus was started due to uncontrolled hypertension. Date of Encounter: 02/04/18 Time of Encounter: 11:00 - Discharge Diagnosis (1) HTN (hypertension) Priority: Primary Status: Chronic Qualifiers: Hypertension type: essential hypertension Qualified Code(s): I10 - Essential (primary) hypertension (2) Syncope Priority: Primary Status: Acute Qualifiers: Syncope type: vasovagal syncope Qualified Code(s): R55 - Syncope and collapse (3) Bradycardia Priority: Secondary Status: Acute (4) Dementia Priority: Primary Status: Chronic Qualifiers: Dementia type: unspecified type Dementia behavioral disturbance: without behavioral disturbance Qualified Code(s): F03.90 - Unspecified dementia without behavioral disturbance (5) Diabetes Priority: Secondary Status: Chronic Qualifiers: Diabetes mellitus type: other specified (including KASSIE) Diabetes mellitus terminal gauger supervisor insulin use: unspecified terminal gauger supervisor insulin use status Proliferative retinopathy type: unspecified Laterality: unspecified laterality Qualified Code(s): 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 Per who is at bedside, patient had been outside gardening in the hot summer heat the day before and the next morning while preparing breakfast she put her head down on the counter and began to fall and her caught her. Family was concerned and called EMS and patient was brought into the ER for evaluation. During patients hospital stay syncopal workup was negative and are as follows: CT of the head showed no acute findings; echocardiogram showed LVEF of 60-65% with mild left ventricular diastolic dysfunction but no significant Valvular dysfunction; Carotid Dopplers with 40-59 stenosis bilaterally; and orthostatic hypotension test was negative. reported that he thinks that since starting Namenda, patient had at least 2 syncopal episodes. Side effect profile for Namenda dose report dizziness. Namenda was discontinued during hospital stay and patient remained asymptomatic. Patients blood pressure was also elevated her hospital stay which was controlled after adding calcium channel zeus. She will be discharged to continue calcium channel zeus and MARCO inhibitor in addition to discontinuing Namenda. Patient to follow-up with primary care provider for management of dementia and hypertension. - Time Spent with Patient Total time spent providing and/or coordinating discharge services: Less than 30 minutes - Discharge Medications Prescriptions: amLODIPine [Norvasc] 10 mg PO DAILY #60 tablet Home Medications: Aspirin [Lo-Dose Aspirin EC] 81 mg PO DAILY 10/09/16 [History] Atorvastatin [Lipitor] 40 mg PO HS 10/09/16 [History] Insulin ASPART [Novolog Flexpen] 4 - 6 unit SQ TIDWM 10/09/16 [History] LORazepam [Ativan] 0.5 mg PO HS 10/09/16 [History] Lisinopril [Zestril] 5 mg PO DAILY 10/09/16 [History] Insulin Glargine,Hum.rec.anlog [Basaglar Kwikpen U-100] 12 units SQ QAM [History] amLODIPine [Norvasc] 10 mg PO DAILY #60 tablet 02/04/18 [Rx] Allergies/Adverse Reactions: 3 Allergy/AdvReac Type Severity Reaction Status Date / Time No Known Allergies Allergy Verified 02/01/18 11:57 Date of admission: 02/01/18 12:40 Primary care physician: Erika Delatorre CNP Consults: 02/01/18 13:18 Consult to Transfer Iron Operator [CONS] Routine Reason for SW Consult: Please assess patient for possible home needs for post -discharge planning. 02/01/18 15:23 Consult to Nutrition [CONS] Routine Comment: Consulting Provider: NUTRITION Reason for Dietary Consult: PO Supplementation - Constitutional Vitals: Temp Pulse Resp BP Pulse Ox 97.8 F 58 17 133/60 97 02/04/18 11:52 02/04/18 11:52 02/04/18 11:52 02/04/18 11:52 02/04/18 11:52 General appearance: Present: cooperative, A&O X 3, pleasant, no acute distress, underweight, answers questions appropriately - Respiratory Respiratory exam: Present: CTAB. Absent: accessory muscle use, rales, rhonchi, wheezes - Cardiovascular Cardiovascular exam: Present: RRR, +S1, +S2. Absent: diastolic murmur, gallop, rubs, systolic murmur - Patient Status Disposition: Home, Self-Care Condition: Good - Discharge Instructions Instructions: Amlodipine (By mouth), Syncope (DC), Syncope (GEN), Hypertension (DC), Hypertension (GEN) Follow Up With: Erika Delatorre CNP [Primary Care Provider] - (Your appointment has been web requested. The office will contact you with your follow-up appointment.)
== END 2018-02-04 15:34 | disposition home or self-care (01) ==
LOC: EMEROO 10:18 → 3BNU 10:18 → SUATTDRO 12:40 → 3BNU 14:02
PROVIDERS: ADMIT Student in an Organized Health Care Education/Training Program; ATTEND Hospitalist